=== PATIENT | male | born 1990 | race Caucasian/White ===

== ENCOUNTER 2016-11-04 20:46 | Emergency (ER) | payer MEDICAID ==
--- NOTE | 2016-11-04 20:52 | ER Document Report ---
ED Medical Screen (RME) - General Stated Complaint: PSYCH EVAL Notes: Patient has history of a TBI has been aggressive over the last several days as expressed suicidal ideation today with the plan to attempts. TRAVEL OUTSIDE OF THE [place] IN LAST 30 DAYS: No - Related Data Allergies/Adverse Reactions: No Known Allergies Allergy (Verified 08/01/16 15:49)
--- NOTE | 2016-11-04 22:46 | ER Document Report ---
ED General - General Chief Complaint: Psych Problem Stated Complaint: PSYCH EVAL Mode of Arrival: Ambulatory Information source: Patient, Parent Cannot obtain history due to: Other Notes: 26 yr old male with hx of tbi with short term memory on multiple medications presents with family iwth concerns that over the past 3 days he has been aggressive and threatening suicidal ideation. t has never actually harmed himself or others, has had si in the past. pt today stated he wanted ot walk in front of a semi , and find a scissor to harm himself. currently patient denies any symptoms and doesnt remember this episode TRAVEL OUTSIDE OF THE [place] IN LAST 30 DAYS: No - HPI Onset: Other - 3 days Onset/Duration: Intermittent Quality of pain: No pain Severity: Mild Pain Level: Denies Associated symptoms: None Exacerbated by: Denies Relieved by: Denies Similar symptoms previously: Yes Recently seen / treated by doctor: Yes - pt seen originally at [facility]. now being seen in [facility] [address] - Related Data Allergies/Adverse Reactions: No Known Allergies Allergy (Verified 08/01/16 15:49) Past Medical History - Social History Smoking Status: Current Every Day Smoker Cigarette use (# per day): No Chew tobacco use (# tins/day): No Smoking Education Provided: No Drug Abuse: Marijuana Family History: None Patient has suicidal ideation: Yes - currently denies Patient has homicidal ideation: No Renal/ Medical History: Denies: Hx Peritoneal Dialysis Review of Systems - Review of Systems Notes: REVIEW OF SYSTEMS: CONSTITUTIONAL : Denies fever, chills, or sweats. Denies recent illness. EENT: Denies eye, ear, throat, or mouth pain or symptoms. Denies nasal or sinus congestion or discharge. Denies throat, tongue, or mouth swelling or difficulty swallowing. CARDIOVASCULAR: Denies chest pain. Denies palpitations or racing or irregular heart beat. Denies ankle edema. RESPIRATORY: Denies cough, cold, or chest congestion. Denies shortness of breath, difficulty breathing, or wheezing. GASTROINTESTINAL: Denies abdominal pain or distention. Denies nausea, vomiting , or diarrhea. Denies blood in vomitus, stools, or per rectum. Denies black, tarry stools. Denies constipation. GENITOURINARY: Denies difficulty urinating, painful urination, burning, frequency, blood in urine, or discharge. MUSCULOSKELETAL: Denies back or neck pain or stiffness. Denies joint pain or swelling. SKIN: Denies rash, lesions or sores. HEMATOLOGIC : Denies easy bruising or bleeding. LYMPHATIC: Denies swollen, enlarged glands. NEUROLOGICAL: Denies confusion or altered mental status. Denies passing out or loss of consciousness. Denies dizziness or lightheadedness. Denies headache. Denies weakness or paralysis or loss of use of either side. Denies problems with gait or speech. Denies sensory loss, numbness, or tingling. Denies seizures. PSYCHIATRIC: Admits to suicidal ideations per family patient himself denies ALL OTHER SYSTEMS REVIEWED AND NEGATIVE. Dictation was performed using [employer] voice recognition software PHYSICAL EXAMINATION: GENERAL: Well-appearing, well-nourished and in no acute distress . HEAD: Atraumatic, normocephalic. EYES: Pupils equal round and reactive to light, extraocular movements intact, sclera anicteric, conjunctiva are normal. ENT: Nares patent, oropharynx clear without exudates. Moist mucous membranes. NECK: Normal range of motion, supple without lymphadenopathy LUNGS: Breath sounds clear to auscultation bilaterally and equal. No wheezes rales or rhonchi. HEART: Regular rate and rhythm without murmurs ABDOMEN: Soft, nontender, nondistended abdomen. No guarding, no rebound. No masses appreciated. Musculoskeletal: Normal range of motion, no pitting or edema. No cyanosis. NEUROLOGICAL: Cranial nerves grossly intact. Normal speech, normal gait. Normal sensory, motor exams PSYCH: patient is calm and resting, just took his home meds prior ot arrival SKIN: Warm, Dry, normal turgor, no rashes or lesions noted. Physical Exam - Vital signs Vitals: Temp Pulse Resp BP Pulse Ox 98.0 F 77 18 110/64 98 11/04/16 20:54 11/04/16 20:54 11/04/16 20:54 11/04/16 20:54 11/04/16 20:54 Course - Re-evaluation Re-evalutation: 11/04/16 22:45 at this time patient is medical cleared, he is in no distress and does not wish to harm himself or others this may be secondary to his tbi that he is acting this way will hold overnight ot be evaluated by mental health - Vital Signs Vital signs: Temp Pulse Resp BP Pulse Ox 98.0 F 77 18 110/64 98 11/04/16 20:54 11/04/16 20:54 11/04/16 20:54 11/04/16 20:54 11/04/16 20:54 Discharge - Discharge Clinical Impression: Poor short-term memory, Aggressive behavior of adult, Suicidal ideation Traumatic brain injury Qualifiers: Encounter type: sequela Loss of consciousness presence/duration: without LOC Qualified Code(s): S06.9X0S - Unspecified intracranial injury without loss of consciousness, sequela Condition: Stable Disposition: PSYCH HOSP/UNIT Additional Instructions: Please follow-up with care plan provided to you for mental health return immediately if there are any other concerns
[2016-11-05] LABS: URINE BARBITURATES SCREEN NEGATIVE; URINE METHADONE SCREEN NEGATIVE; URINE PHENCYCLIDINE SCREEN NEGATIVE
[2016-11-05 00:05] LABS: ABSOLUTE EOSINOPHILS # (AUTO) 0.1 10^3/uL (0.0-0.6); ABSOLUTE LYMPHOCYTES (AUTO) 2.2 10^3/uL (0.5-4.7); ABSOLUTE MONOCYTES (AUTO) 0.9 10^3/uL (0.1-1.4); ABSOLUTE NEUT (AUTO) 5.6 10^3/uL (1.7-8.2); BASOPHILS % (AUTO) 0.4 % (0-2); EOSINOPHILS % (AUTO) 1.6 % (0-6); HEMATOCRIT 35.4 % (37.9-51.0); HEMOGLOBIN 11.7 g/dL (13.5-17.0); HGB HCT DIFFERENCE -0.3; LYMPHOCYTES % (AUTO) 24.9 % (13-45); MEAN CORPUSCULAR HEMOGLOBIN 29.7 pg (27.0-33.4); MEAN CORPUSCULAR VOLUME 90 fl (80-97); MONOCYTES % (AUTO) 10.4 % (3-13); RED BLOOD COUNT 3.93 10^6/uL (4.35-5.55); RED CELL DISTRIBUTION WIDTH 13.5 % (11.5-14.0); SEGMENTED NEUTROPHILS % (AUTO) 62.7 % (42-78)
[2016-11-05 00:22] LABS: ALANINE AMINOTRANSFERASE 15 U/L (21-72); ALBUMIN 3.5 g/dL (3.5-5.0); ALCOHOL < 10 mg/dL (NONE DETECTED); ALKALINE PHOSPHATASE 111 U/L (38-126); ANION GAP 9 (5-19); ASPARTATE AMINO TRANSFERASE 13 U/L (17-59); BILIRUBIN,TOTAL 0.3 mg/dL (0.2-1.3); BLOOD UREA NITROGEN 6 mg/dL (7-20); CALCIUM 8.7 mg/dL (8.4-10.2); CARBON DIOXIDE 28 mmol/L (22-30); CHLORIDE 108 mmol/L (98-107); GLUCOSE 77 mg/dL (75-110); POTASSIUM 3.4 mmol/L (3.6-5.0); SODIUM 144.5 mmol/L (137-145); TOTAL PROTEIN 5.4 g/dL (6.3-8.2)
[2016-11-05 01:07] LABS: APPEARANCE,URINE CLEAR; BILIRUBIN,URINE NEGATIVE (NEGATIVE); GLUCOSE, URINE NEGATIVE (NEGATIVE); KETONES,URINE NEGATIVE (NEGATIVE); LEUKOCYTE ESTERASE,URINE NEGATIVE (NEGATIVE); NITRITE,URINE NEGATIVE (NEGATIVE); PROTEIN,URINE NEGATIVE (NEGATIVE); URINE SPECIFIC GRAVITY 1.005; UROBILINOGEN,URINE NEGATIVE mg/dL (<2.0)
--- NOTE | 2016-11-05 09:24 | EKG REPORT ---
SEVERITY:- NORMAL ECG - SINUS RHYTHM : Confirmed by: Maite Sahni MD 05-Nov-2016 09:23:17
--- NOTE | 2016-11-05 09:41 | ER Document Report ---
Doctor's Note Notes: 11/05/16 09:41 I have evaluated this pt. this am and he has no c/o at this time. He feels all of his needs are being met and his physical exam is normal. He is awaiting disposition per mental health.
[2016-11-05] MEDS ORDERED: OXCARBAZEPINE 150 MG TABLET PO SCH (10:00)
[2016-11-05] MEDS ORDERED: CLONAZEPAM 1 MG TABLET PO SCH (10:00)
[2016-11-05] MEDS ORDERED: OLANZAPINE 5 MG TABLET PO SCH (10:00)
[2016-11-05] MEDS ORDERED: DOXAZOSIN MESYLATE 1 MG TABLET PO SCH (10:00)
[2016-11-05] MEDS ORDERED: VENLAFAXINE HCL 37.5 MG CAP.SR.24H PO SCH (10:00)
[2016-11-05] MEDS ORDERED: GABAPENTIN 300 MG CAPSULE PO SCH (10:00)
[2016-11-05] MEDS ORDERED: (PENDING PHARMACY ID) (Venlafaxine Hcl [Effexor] 37.5 MG) PO SCH (10:00)
[2016-11-05] MEDS ORDERED: (PENDING PHARMACY ID) (Prazosin Hcl [Prazosin Hcl] 1 MG) PO SCH (10:00)
[2016-11-05] MEDS ORDERED: LISDEXAMFETAMINE DIMESYLATE 40 MG PO SCH (10:00)
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
[2016-11-05 12:04] VITALS: BP 105/68
== END 2016-11-05 12:02 | disposition home or self-care (01) ==
LOC: ER 20:46
DX: R41.3 Other amnesia (principal); R45.851 Suicidal ideations; R46.89 Other symptoms and signs involving appearance and behavior; S06.9X0S Unspecified intracranial injury without loss of consciousness, sequela; X58.XXXS Exposure to other specified factors, sequela; F17.200 Nicotine dependence, unspecified, uncomplicated; Z79.899 Other long term (current) drug therapy
CPT/HCPCS: 93005; 99285; 36415; 80307 ×4; 85025; 80053; 81001; 93010; J3490 ×4

== ENCOUNTER 2016-11-08 13:26 | Emergency (ER) | payer MEDICAID ==
[2016-11-08 14:37] LABS: ABSOLUTE EOSINOPHILS # (AUTO) 0.1 10^3/uL (0.0-0.6); ABSOLUTE LYMPHOCYTES (AUTO) 1.6 10^3/uL (0.5-4.7); ABSOLUTE MONOCYTES (AUTO) 0.8 10^3/uL (0.1-1.4); ABSOLUTE NEUT (AUTO) 6.1 10^3/uL (1.7-8.2); BASOPHILS % (AUTO) 0.3 % (0-2); EOSINOPHILS % (AUTO) 0.8 % (0-6); HEMATOCRIT 39.4 % (37.9-51.0); HEMOGLOBIN 12.8 g/dL (13.5-17.0); MEAN CORPUSCULAR HEMOGLOBIN 29.8 pg (27.0-33.4); MEAN CORPUSCULAR HGB CONC 32.6 g/dL (32.0-36.0); MEAN CORPUSCULAR VOLUME 91 fl (80-97); MONOCYTES % (AUTO) 9.1 % (3-13); RED BLOOD COUNT 4.31 10^6/uL (4.35-5.55); RED CELL DISTRIBUTION WIDTH 13.6 % (11.5-14.0); SEGMENTED NEUTROPHILS % (AUTO) 70.8 % (42-78); WHITE BLOOD COUNT 8.6 10^3/uL (4.0-10.5)
[2016-11-08 14:54] LABS: APPEARANCE,URINE SLIGHTLY-CLOUDY; BILIRUBIN,URINE NEGATIVE (NEGATIVE); CALCIUM OXALATE CRYSTALS,URINE RARE /HPF; GLUCOSE, URINE NEGATIVE (NEGATIVE); KETONES,URINE NEGATIVE (NEGATIVE); LEUKOCYTE ESTERASE,URINE TRACE (NEGATIVE); NITRITE,URINE NEGATIVE (NEGATIVE); PROTEIN,URINE NEGATIVE (NEGATIVE); URINE SPECIFIC GRAVITY 1.015
[2016-11-08 14:59] LABS: URINE BARBITURATES SCREEN NEGATIVE; URINE METHADONE SCREEN NEGATIVE; URINE PHENCYCLIDINE SCREEN NEGATIVE
[2016-11-08 15:06] LABS: ALANINE AMINOTRANSFERASE 15 U/L (21-72); ALBUMIN 3.7 g/dL (3.5-5.0); ALKALINE PHOSPHATASE 131 U/L (38-126); ANION GAP 9 (5-19); ASPARTATE AMINO TRANSFERASE 21 U/L (17-59); BILIRUBIN,TOTAL 0.3 mg/dL (0.2-1.3); BLOOD UREA NITROGEN 6 mg/dL (7-20); CARBON DIOXIDE 32 mmol/L (22-30); CHLORIDE 102 mmol/L (98-107); CREATININE RESULT 0.68 mg/dL (0.52-1.25); GLUCOSE 91 mg/dL (75-110); POTASSIUM 3.3 mmol/L (3.6-5.0); TOTAL PROTEIN 6.1 g/dL (6.3-8.2)
[2016-11-08 15:07] LABS: ALCOHOL < 10 mg/dL (NONE DETECTED)
--- NOTE | 2016-11-08 15:18 | ER Document Report ---
ED General - General Chief Complaint: Suicidal Ideation Stated Complaint: WEAKNESS Mode of Arrival: Ambulatory Information source: Patient, [facility] Records Notes: 18-year-old male history of suicidal ideations who was just seen here a few days prior presents with continued suicidal ideation. Patient notes he wants sternal himself or jumping from a car. Patient denies any actual attempt to do so. Denies any other deficits or concerns TRAVEL OUTSIDE OF THE [place] IN LAST 30 DAYS: No - HPI Onset: Other Onset/Duration: Persistent Quality of pain: No pain Severity: Mild Pain Level: Denies Associated symptoms: Other Exacerbated by: Denies Relieved by: Denies Similar symptoms previously: Yes Recently seen / treated by doctor: Yes - Related Data Allergies/Adverse Reactions: No Known Allergies Allergy (Verified 11/08/16 13:45) Past Medical History - Social History Smoking Status: Current Every Day Smoker Cigarette use (# per day): No Chew tobacco use (# tins/day): No Smoking Education Provided: No Family History: None Patient has suicidal ideation: Yes Patient has homicidal ideation: No Renal/ Medical History: Denies: Hx Peritoneal Dialysis - Immunizations Hx Diphtheria, Pertussis, Tetanus Vaccination: No Review of Systems - Review of Systems Notes: REVIEW OF SYSTEMS: CONSTITUTIONAL : Denies fever, chills, or sweats. Denies recent illness. EENT: Denies eye, ear, throat, or mouth pain or symptoms. Denies nasal or sinus congestion or discharge. Denies throat, tongue, or mouth swelling or difficulty swallowing. CARDIOVASCULAR: Denies chest pain. Denies palpitations or racing or irregular heart beat. Denies ankle edema. RESPIRATORY: Denies cough, cold, or chest congestion. Denies shortness of breath, difficulty breathing, or wheezing. GASTROINTESTINAL: Denies abdominal pain or distention. Denies nausea, vomiting , or diarrhea. Denies blood in vomitus, stools, or per rectum. Denies black, tarry stools. Denies constipation. GENITOURINARY: Denies difficulty urinating, painful urination, burning, frequency, blood in urine, or discharge. MUSCULOSKELETAL: Denies back or neck pain or stiffness. Denies joint pain or swelling. SKIN: Denies rash, lesions or sores. HEMATOLOGIC : Denies easy bruising or bleeding. LYMPHATIC: Denies swollen, enlarged glands. NEUROLOGICAL: Denies confusion or altered mental status. Denies passing out or loss of consciousness. Denies dizziness or lightheadedness. Denies headache. Denies weakness or paralysis or loss of use of either side. Denies problems with gait or speech. Denies sensory loss, numbness, or tingling. Denies seizures. PSYCHIATRIC: Admits to stress suicidal ideation ALL OTHER SYSTEMS REVIEWED AND NEGATIVE. Dictation was performed using [employer] voice recognition software PHYSICAL EXAMINATION: GENERAL: Well-appearing, well-nourished and in no acute distress. HEAD: Atraumatic, normocephalic. EYES: Pupils equal round and reactive to light, extraocular movements intact, sclera anicteric, conjunctiva are normal. ENT: Nares patent, oropharynx clear without exudates. Moist mucous membranes. NECK: Normal range of motion, supple without lymphadenopathy LUNGS: Breath sounds clear to auscultation bilaterally and equal. No wheezes rales or rhonchi. HEART: Regular rate and rhythm without murmurs ABDOMEN: Soft, nontender, nondistended abdomen. No guarding, no rebound. No masses appreciated. Musculoskeletal: Normal range of motion, no pitting or edema. No cyanosis. NEUROLOGICAL: Cranial nerves grossly intact. Normal speech, normal gait. Normal sensory, motor exams PSYCH: Normal mood, normal affect. SKIN: Warm, Dry, normal turgor, no rashes or lesions noted. Physical Exam - Vital signs Vitals: Temp Pulse Resp BP Pulse Ox 97.8 F 93 16 103/69 98 11/08/16 13:38 11/08/16 13:38 11/08/16 13:38 11/08/16 13:38 11/08/16 13:38 Course - Re-evaluation Re-evalutation: 11/08/16 15:16 Laboratory does note mild hypokalemia otherwise patient appears to be no significant distress. He does have marijuana on board. pt will require mental health eval and further plan - Vital Signs Vital signs: Temp Pulse Resp BP Pulse Ox 97.8 F 93 16 103/69 98 11/08/16 13:38 11/08/16 13:38 11/08/16 13:38 11/08/16 13:38 11/08/16 13:38 - Laboratory Result Diagrams: 11/08/16 14:17 11/08/16 14:17 Laboratory results interpreted by me: 11/08/16 11/08/16 11/08/16 14:17 14:17 14:17 RBC 4.31 L Hgb 12.8 L Potassium 3.3 L Carbon Dioxide 32 H BUN 6 L ALT 15 L Alkaline Phosphatase 131 H Total Protein 6.1 L Urine Urobilinogen 4.0 H Ur Leukocyte Esterase TRACE H Salicylates < 1.0 L Acetaminophen < 10 L - EKG Interpretation by Me EKG shows normal: Sinus rhythm, [place], Intervals, QRS Complexes Discharge - Discharge Clinical Impression: Aggressive behavior, adult, Suicidal ideation TBI (traumatic brain injury) Qualifiers: Encounter type: subsequent encounter Loss of consciousness presence/duration: without LOC Qualified Code(s): S06.9X0D - Unspecified intracranial injury without loss of consciousness, subsequent encounter Condition: Stable Disposition: PSYCH HOSP/UNIT
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
--- NOTE | 2016-11-08 16:24 | EKG REPORT ---
SEVERITY:- NORMAL ECG - SINUS RHYTHM : Confirmed by: Shaun Alicia MD 08-Nov-2016 16:24:31
[2016-11-08] MEDS ORDERED: VENLAFAXINE HCL 25 MG TABLET PO ONE (19:15)
[2016-11-08] MEDS ORDERED: OLANZAPINE 5 MG TABLET PO ONE (19:15)
[2016-11-08] MEDS: OXCARBAZEPINE 150 MG TABLET PO SCH (22:35)
[2016-11-08] MEDS: GABAPENTIN 300 MG CAPSULE PO SCH (22:35)
[2016-11-09] MEDS: GABAPENTIN 300 MG CAPSULE PO SCH (09:06)
[2016-11-09] MEDS: OXCARBAZEPINE 150 MG TABLET PO SCH (09:06)
[2016-11-09] MEDS ORDERED: OLANZAPINE 5 MG TABLET PO SCH (10:00)
[2016-11-09] MEDS ORDERED: VENLAFAXINE HCL 25 MG TABLET PO SCH (10:00)
[2016-11-09] MEDS ORDERED: POTASSIUM CHLORIDE 10 MEQ TABLET.SA PO ONE (10:08)
--- NOTE | 2016-11-09 11:06 | ER Document Report ---
Doctor's Note Notes: 11/09/16 11:05 Rounds: Chart reviewed and patient interviewed. Patient appears calm and well. Says he doesn't feel suicidal today. Says he has family problems causing his explosive behavior. Vital signs are all normal. Labs were normal except for being positive marijuana and having a potassium of 3.2. He was given 40 mEq of KCl by mouth. Patient appears medically stable for transfer or discharge. Zaira Greer M.D.
[2016-11-09 14:33] VITALS: BP 112/61
== END 2016-11-09 14:33 | disposition home or self-care (01) ==
LOC: ER 13:26
DX: R45.851 Suicidal ideations (principal); F91.9 Conduct disorder, unspecified; S06.9X0S Unspecified intracranial injury without loss of consciousness, sequela; X58.XXXS Exposure to other specified factors, sequela; E87.6 Hypokalemia; F17.200 Nicotine dependence, unspecified, uncomplicated
CPT/HCPCS: 93005; 99285; 36415; 80307 ×4; 85025; 80053; 81001; 93010; J3490 ×4

== ENCOUNTER 2017-04-18 15:48 | Inpatient (IN) | payer MEDICAID ==
[2017-04-18] MEDS ORDERED: NORMAL SALINE 1000 ML 1,000 ML IV ONE (15:57)
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
[2017-04-18 16:17] LABS: ABSOLUTE EOSINOPHILS # (AUTO) 0.1 10^3/uL (0.0-0.6); ABSOLUTE LYMPHOCYTES (AUTO) 0.6 10^3/uL (0.5-4.7); ABSOLUTE MONOCYTES (AUTO) 0.5 10^3/uL (0.1-1.4); ABSOLUTE NEUT (AUTO) 6.9 10^3/uL (1.7-8.2); BASOPHILS % (AUTO) 0.4 % (0-2); HEMOGLOBIN 10.9 g/dL (13.5-17.0); HGB HCT DIFFERENCE -0.3; LYMPHOCYTES % (AUTO) 7.7 % (13-45); MEAN CORPUSCULAR HEMOGLOBIN 29.9 pg (27.0-33.4); MEAN CORPUSCULAR HGB CONC 33.1 g/dL (32.0-36.0); MEAN CORPUSCULAR VOLUME 91 fl (80-97); MONOCYTES % (AUTO) 6.1 % (3-13); RED BLOOD COUNT 3.64 10^6/uL (4.35-5.55); RED CELL DISTRIBUTION WIDTH 12.3 % (11.5-14.0); SEGMENTED NEUTROPHILS % (AUTO) 84.8 % (42-78); WHITE BLOOD COUNT 8.1 10^3/uL (4.0-10.5)
[2017-04-18 16:25] LABS: ALANINE AMINOTRANSFERASE 20 U/L (21-72); ALKALINE PHOSPHATASE 83 U/L (38-126); ANION GAP 17 (5-19); ASPARTATE AMINO TRANSFERASE 15 U/L (17-59); BILIRUBIN,DIRECT 0.4 mg/dL (0.0-0.4); BILIRUBIN,TOTAL 0.7 mg/dL (0.2-1.3); BLOOD UREA NITROGEN 10 mg/dL (7-20); CARBON DIOXIDE 17 mmol/L (22-30); CHLORIDE 105 mmol/L (98-107); CREATININE RESULT 1.13 mg/dL (0.52-1.25); GLUCOSE 144 mg/dL (75-110); POTASSIUM 3.4 mmol/L (3.6-5.0); SODIUM 138.6 mmol/L (137-145); TOTAL PROTEIN 6.3 g/dL (6.3-8.2)
[2017-04-18 16:32] LABS: VENOUS BLOOD BASE EXCESS -2.3 mmol/L; VENOUS BLOOD HCO3 22.2 mmol/L (20-32); VENOUS BLOOD PCO2 37.5 mmHg (35-63); VENOUS BLOOD PH 7.39 (7.30-7.42)
[2017-04-18 16:41] LABS: PROTHROMBIN TIME 15.5 SEC (11.4-15.4)
[2017-04-18] MEDS ORDERED: PIPERACILLIN/TAZOBACTAM 3.375 GM VIAL IV ONE (16:41)
[2017-04-18] MEDS ORDERED: VANCOMYCIN HCL INJ 1000 MG VIAL IV ONE (16:41)
[2017-04-18] MEDS ORDERED: ACETAMINOPHEN 325 MG TABLET PO PRN (17:14)
[2017-04-18 17:36] LABS: APPEARANCE,URINE CLEAR; BILIRUBIN,URINE NEGATIVE (NEGATIVE); GLUCOSE, URINE NEGATIVE (NEGATIVE); KETONES,URINE NEGATIVE (NEGATIVE); LEUKOCYTE ESTERASE,URINE NEGATIVE (NEGATIVE); NITRITE,URINE NEGATIVE (NEGATIVE); PROTEIN,URINE NEGATIVE (NEGATIVE); URINE SPECIFIC GRAVITY 1.003; UROBILINOGEN,URINE NEGATIVE mg/dL (<2.0)
[2017-04-18 17:44] LABS: CREATINE KINASE 43 U/L (55-170); MAGNESIUM 1.7 mg/dL (1.6-2.3)
[2017-04-18 17:52] LABS: URINE BARBITURATES SCREEN NEGATIVE; URINE METHADONE SCREEN NEGATIVE; URINE OPIATES LOW NEGATIVE; URINE PHENCYCLIDINE SCREEN NEGATIVE
[2017-04-18] MEDS ORDERED: NORMAL SALINE 1000 ML 3,000 ML IV ONE (17:59)
[2017-04-18] MEDS ORDERED: ENOXAPARIN SODIUM INJ 40 MG/0.4 ML DISP.SYRIN SUBCUT ONE (18:00)
[2017-04-18] MEDS ORDERED: (PENDING PHARMACY ID) (Clonazepam [Klonopin] 0.5 MG) PO PRN (18:01)
[2017-04-18] MEDS ORDERED: CLONAZEPAM 1 MG TABLET PO PRN (18:09)
[2017-04-18] MEDS ORDERED: TRAMADOL HCL 50 MG TABLET PO PRN (18:19)
--- NOTE | 2017-04-18 18:19 | PDOC H&P ---
History of Present Illness Admission Date/PCP: 04/18/17 none History of Present Illness: ANGEL BROOKS is a 26 year old male with a past medical history of a TBI and subsequent bipolar depression who was recently discharged from [facility] for IVC. Patient was walking 2 miles to the cast and with his brother when he collapsed. Patient does suffer some from some short-term memory loss associated with his TBI. He did say to his brother that he was having some back pain and belly pain and yesterday complaining of being cold. The bulk of the history is obtained from his mother who was present at bedside. Patient was found by EMS to have fever of 104 and received a liter of cold saline from EMS. Patient here is found to have a lactic acidosis and probable sepsis referred to the hospitalist service. Past Medical History Past Medical History: tbi Past Surgical History Past Surgical History: Reports: Other - PELLETIZER TENDER shunt x2 Social History Smoking Status: Current Every Day Smoker Cigarettes Packs Per Day: 2 Frequency of Alcohol Use: Rare Hx Recreational Drug Use: Yes Drugs: Marijuana - Advance Directive Resuscitation Status: Full Code Surrogate healthcare decision maker:: Vicki Acosta, Mother Family History Family History: CAD, Malignancy, Other - mental illness Parental Family History Reviewed: Yes Children Family History Reviewed: Yes Sibling(s) Family History Reviewed.: Yes Medication/Allergy Home Medications: Benztropine Mesylate 1 mg PO DAILY 04/18/17 Clonazepam [Klonopin] 0.5 mg PO TID PRN 04/18/17 Guanfacine HCl 2 mg PO QAM 04/18/17 Haloperidol [Haldol 5 mg Tablet] 5 mg PO QHS 04/18/17 Prazosin HCl 1 mg PO QHS 04/18/17 Venlafaxine HCl ER [Effexor Xr 75 mg Cap.sr] 75 mg PO QAM 04/18/17 Allergies/Adverse Reactions: No Known Allergies Allergy (Verified 04/18/17 16:04) Review of Systems Constitutional: PRESENT: chills, fatigue. ABSENT: fever(s), headache(s), weight gain, weight loss Eyes: ABSENT: visual disturbances Ears: ABSENT: hearing changes Nose, Mouth, and Throat: PRESENT: headache(s), mouth pain Cardiovascular: ABSENT: chest pain, dyspnea on exertion, edema, orthropnea, palpitations Respiratory: ABSENT: cough, dyspnea, hemoptysis, sputum Gastrointestinal: ABSENT: abdominal pain, constipation, diarrhea, hematemesis, hematochezia, nausea, vomiting Genitourinary: ABSENT: dysuria, hematuria Musculoskeletal: ABSENT: joint swelling Integumentary: ABSENT: rash, wounds Neurological: PRESENT: memory loss, weakness. ABSENT: abnormal gait, abnormal speech, confusion, dizziness, focal weakness, syncope Psychiatric: PRESENT: depression. ABSENT: anxiety, homidical ideation, suicidal ideation Endocrine: ABSENT: cold intolerance, heat intolerance, polydipsia, polyuria Hematologic/Lymphatic: ABSENT: easy bleeding, easy bruising Physical Exam Vital Signs: Temp Pulse Resp BP Pulse Ox 98.2 F 88 22 H 110/73 100 04/18/17 17:40 04/18/17 16:08 04/18/17 17:31 04/18/17 17:31 04/18/17 17:31 Intake & Output 04/17/17 04/18/17 04/19/17 06:59 06:59 06:59 Weight 58.967 kg General appearance: PRESENT: mild distress, thin, well-developed, well-nourished Head exam: PRESENT: normocephalic. ABSENT: atraumatic - prior vp hr diversity shunt Eye exam: PRESENT: conjunctiva pink, EOMI, PERRLA. ABSENT: scleral icterus Ear exam: PRESENT: normal external ear exam Mouth exam: PRESENT: dry mucosa, tongue midline Teeth exam: PRESENT: dental caries Neck exam: PRESENT: lymphadenopathy - right anterior cervical. ABSENT: JVD, thyromegaly, tracheal deviation Respiratory exam: PRESENT: clear to auscultation mei, prolonged expiratory phas , symmetrical, unlabored. ABSENT: rales, rhonchi, wheezes Cardiovascular exam: PRESENT: RRR, +S1, +S2, tachycardia. ABSENT: diastolic murmur, rubs, systolic murmur Pulses: PRESENT: normal dorsalis pedis pul Vascular exam: PRESENT: normal capillary refill GI/Abdominal exam: PRESENT: normal bowel sounds, soft. ABSENT: distended, firm , guarding, mass, De La Cruz's sign, organolmegaly, rebound, rigid, tenderness Rectal exam: PRESENT: deferred Extremities exam: PRESENT: full ROM. ABSENT: calf tenderness, clubbing, pedal edema Musculoskeletal exam: PRESENT: other - Right CVA tenderness Neurological exam: PRESENT: alert, awake, oriented to person, oriented to place , oriented to time, oriented to situation, CN II-XII grossly intact. ABSENT: motor sensory deficit Psychiatric exam: PRESENT: flat affect, normal mood. ABSENT: homicidal ideation , suicidal ideation Skin exam: PRESENT: dry, intact, warm. ABSENT: cyanosis, rash Results Laboratory Results: 04/18/17 16:00 04/18/17 16:00 04/18/17 04/18/17 04/18/17 16:00 16:00 16:00 WBC 8.1 RBC 3.64 L Hgb 10.9 L Hct 33.0 L MCV 91 MCH 29.9 MCHC 33.1 RDW 12.3 Plt Count 190 Seg Neutrophils % 84.8 H Lymphocytes % 7.7 L Monocytes % 6.1 Eosinophils % 1.0 Basophils % 0.4 Absolute Neutrophils 6.9 Absolute Lymphocytes 0.6 Absolute Monocytes 0.5 Absolute Eosinophils 0.1 Absolute Basophils 0.0 VBG pH VBG pCO2 VBG HCO3 VBG Base Excess Sodium 138.6 Potassium 3.4 L Chloride 105 Carbon Dioxide 17 L Anion Gap 17 BUN 10 Creatinine 1.13 Est GFR ( Amer) > 60 Est GFR (Non-Af Amer) > 60 Glucose 144 H Lactic Acid 6.1 H Calcium 9.0 Phosphorus Magnesium Total Bilirubin 0.7 AST 15 L ALT 20 L Alkaline Phosphatase 83 Total Protein 6.3 Albumin 4.0 Urine Color Urine Appearance Urine pH Ur Specific [place] Urine Protein Urine Glucose (UA) Urine Ketones Urine Blood Urine Nitrite Ur Leukocyte Esterase Urine WBC (Auto) Urine RBC (Auto) 04/18/17 04/18/17 04/18/17 16:00 16:18 17:20 WBC RBC Hgb Hct MCV MCH MCHC RDW Plt Count Seg Neutrophils % Lymphocytes % Monocytes % Eosinophils % Basophils % Absolute Neutrophils Absolute Lymphocytes Absolute Monocytes Absolute Eosinophils Absolute Basophils VBG pH 7.39 VBG pCO2 37.5 VBG HCO3 22.2 VBG Base Excess -2.3 Sodium Potassium Chloride Carbon Dioxide Anion Gap BUN Creatinine Est GFR ( Amer) Est GFR (Non-Af Amer) Glucose Lactic Acid Calcium Phosphorus 3.0 Magnesium 1.7 Total Bilirubin AST ALT Alkaline Phosphatase Total Protein Albumin Urine Color YELLOW Urine Appearance CLEAR Urine pH 6.0 Ur Specific [place] 1.003 Urine Protein NEGATIVE Urine Glucose (UA) NEGATIVE Urine Ketones NEGATIVE Urine Blood NEGATIVE Urine Nitrite NEGATIVE Ur Leukocyte Esterase NEGATIVE Urine WBC (Auto) 1 Urine RBC (Auto) 1 04/18/17 16:00 Creatine Kinase 43 L Assessment & Plan - Diagnosis (1) Severe sepsis Is this a current diagnosis for this admission?: YesPlan: Patient 3 L IV fluid bolus at this time and maintain map greater than 65. Likely secondary to pyelonephritis. Patient's family reports that he had a UTI in [facility], but was not discharged on any antibiotics. (2) Pyelonephritis Is this a current diagnosis for this admission?: YesPlan: Obtain a CT without contrast for stone and to evaluate his right kidney. Place patient on Rocephin IV. Pending urine culture. (3) Short-term memory loss Is this a current diagnosis for this admission?: YesPlan: Sitter and supportive care (4) Tobacco abuse Is this a current diagnosis for this admission?: YesPlan: Nicotine patch (5) Bipolar depression Is this a current diagnosis for this admission?: YesPlan: Current home medications however there is concern for serotonin syndrome as well as neuroleptic malignant syndrome, but patient no longer has a fever. So feel this is unlikely. (6) Hx of traumatic brain injury Is this a current diagnosis for this admission?: Yes - Time Time Spent: 50 to 70 Minutes Medications reviewed and adjusted accordingly: Yes Anticipated discharge: Home Within: within 48 hours, within 72 hours - Inpatient Certification Based on my medical assessment, after consideration of the patient's comorbidities, presenting symptoms, or acuity I expect that the services needed warrant INPATIENT care.: Yes I certify that my determination is in accordance with my understanding of Medicare's requirements for reasonable and necessary INPATIENT services [42 CFR 412.3e].: Yes Medical Necessity: Need For IV Fluids, Need for IV Antibiotics Post Hospital Care: D/C [employer] Documentation
--- NOTE | 2017-04-18 18:46 | RADIOLOGY REPORT (SQ) ---
EXAM DESCRIPTION: CT ABD/PELVIS NO ORAL OR IV COMPLETED DATE/TIME: 04/18/2017 6:23 pm REASON FOR STUDY: concern for pyelo, stone? COMPARISON: None. TECHNIQUE: CT scan of the abdomen and pelvis performed without intravenous or oral contrast. Images reviewed with lung, soft tissue, and bone windows. Reconstructed coronal and sagittal MPR images revi ewed. All images stored on PACS. All CT scanners at this facility use dose modulation, iterative reconstruction, and/or weight based d osing when appropriate to reduce radiation dose to as low as reasonably achievable (ALARA). [facility]: Dose Right [facility]: CareDose [facility]: Dose Right [facility]: Teradose 4D [facility]: [employer] [place] RADIATION DOSE: Up-to-date CT equipment and radiation dose reduction techniques were employed. CTDIv ol: 4.8 mGy. DLP: 255 mGy-cm.mGy. LIMITATIONS: None. FINDINGS: LOWER CHEST: No significant findings. No nodules or infiltrates. NON-CONTRASTED LIVER, SPLEEN, ADRENALS: Evaluation limited by lack of IV contrast. No identified sign ificant masses. PANCREAS: No masses. No peripancreatic inflammatory changes. GALLBLADDER: No identified stones by CT criteria. No inflammatory changes to suggest cholecystitis. RIGHT KIDNEY AND URETER: No suspicious masses. Assessment limited by lack of IV contrast. No signif icant calcifications. No hydronephrosis or hydroureter. LEFT KIDNEY AND URETER: No suspicious masses. Assessment limited by lack of IV contrast. No signifi cant calcifications. No hydronephrosis or hydroureter. AORTA AND RETROPERITONEUM: No aneurysm. No retroperitoneal masses or adenopathy. BOWEL AND PERITONEAL CAVITY: There is a collection of air in the region of the lesser sac the coronal images appears that this is in bowel, but that is not certain. APPENDIX: Normal. PELVIS, BLADDER, AND ABDOMINAL WALL:No abnormal masses. No free fluid. Bladder normal. BONES: No significant findings. OTHER: No other significant finding. IMPRESSION: 1. No urinary pathology is seen. 2. There may be some free air in the abdomen. Is there clinical suspicion of perforation of a gastr ic or duodenal ulcer? TECHNICAL DOCUMENTATION: JOB ID: [id number] Quality ID # [id number]: Final reports with documentation of one or more dose reduction techniques (e.g., Au tomated exposure control, adjustment of the mA and/or kV according to patient size, use of iterative reconstruction technique) 2010 [employer]- All Rights Reserved
[2017-04-18] MEDS ORDERED: NICOTINE 21 MG/24 HR PATCH.TD24 TD ONE (19:00)
[2017-04-18] MEDS: CEFTRIAXONE 1 GM/D5W RTU 1 GM/50 ML RTUPB IV SCH (21:18)
[2017-04-18] MEDS ORDERED: (PENDING PHARMACY ID) (Prazosin Hcl [Prazosin Hcl] 1 MG) PO SCH (22:00)
[2017-04-18] MEDS: HALOPERIDOL 5 MG TABLET PO SCH (23:07)
[2017-04-18 23:18] LABS: ABSOLUTE EOSINOPHILS # (AUTO) 0.1 10^3/uL (0.0-0.6); ABSOLUTE LYMPHOCYTES (AUTO) 1.6 10^3/uL (0.5-4.7); ABSOLUTE MONOCYTES (AUTO) 0.9 10^3/uL (0.1-1.4); ABSOLUTE NEUT (AUTO) 10.2 10^3/uL (1.7-8.2); BASOPHILS % (AUTO) 0.2 % (0-2); EOSINOPHILS % (AUTO) 0.5 % (0-6); HEMATOCRIT 33.9 % (37.9-51.0); HEMOGLOBIN 11.3 g/dL (13.5-17.0); LYMPHOCYTES % (AUTO) 12.5 % (13-45); MEAN CORPUSCULAR HEMOGLOBIN 29.7 pg (27.0-33.4); MEAN CORPUSCULAR HGB CONC 33.5 g/dL (32.0-36.0); MEAN CORPUSCULAR VOLUME 89 fl (80-97); MONOCYTES % (AUTO) 7.3 % (3-13); RED BLOOD COUNT 3.82 10^6/uL (4.35-5.55); RED CELL DISTRIBUTION WIDTH 12.4 % (11.5-14.0); SEGMENTED NEUTROPHILS % (AUTO) 79.5 % (42-78); WHITE BLOOD COUNT 12.9 10^3/uL (4.0-10.5)
--- NOTE | 2017-04-18 23:40 | EKG REPORT ---
SEVERITY:- BORDERLINE ECG - SINUS RHYTHM BORDERLINE T ABNORMALITIES, INFERIOR LEADS : Confirmed by: Mary Cardenas 18-Apr-2017 23:39:06
--- NOTE | 2017-04-18 23:41 | PDOC CONSULTATION ---
Consultation Consult Date: 04/18/17 Attending physician:: JORGE SUMNER Consult reason:: Possible pneumoperitoneum History of Present Illness Admission Date/PCP: 04/18/17 17:14 History of Present Illness: ANGEL BROOKS is a 26 year old male with a past medical history of a TBI and subsequent bipolar depression who was recently discharged from [facility] for IVC. Patient was walking 2 miles to the cast and with his brother when he collapsed. Patient does suffer some from some short-term memory loss associated with his TBI. He did say to his brother that he was having some back pain and belly pain and yesterday complaining of being cold. The bulk of the history is obtained from his mother who was present at bedside. Patient was found by EMS to have fever of 104 and received a liter of cold saline from EMS. Patient here is found to have a lactic acidosis and probable sepsis referred to the hospitalist service. Was contacted by the hospitalist concerns over a CT scan of the abdomen and pelvis that was performed on the patient's admission. By the radiologist at 6: 23 PM this evening the possibility of free air within the patient's abdomen concern for a gastric or duodenal ulcer with perforation. Patient denies any abdominal pain, denies any nausea or vomiting. Did have the elevated temperature on admission but he cannot elicit a history of how long he had per. He that he ate today but cannot remember what he ate. Stated he had a bowel movement today. Past Medical History Medical History: Other - Cannot be obtained from the patient because of previous traumatic brain injury Past Surgical History Past Surgical History: Reports: Other - DIAMOND CLEAVER shunt x2 Social History Smoking Status: Never Smoker Cigarettes Packs Per Day: 2 Frequency of Alcohol Use: None Hx Recreational Drug Use: No Drugs: None Hx Prescription Drug Abuse: No - Advance Directive Resuscitation Status: Full Code Family History Family History: CAD, Malignancy, Other - mental illness Parental Family History Reviewed: Yes Children Family History Reviewed: No Sibling(s) Family History Reviewed.: No Medication/Allergy Home Medications: Benztropine Mesylate 1 mg PO DAILY 04/18/17 Clonazepam [Klonopin] 0.5 mg PO TID PRN 04/18/17 Guanfacine HCl 2 mg PO QAM 04/18/17 Haloperidol [Haldol 5 mg Tablet] 5 mg PO QHS 04/18/17 Prazosin HCl 1 mg PO QHS 04/18/17 Venlafaxine HCl ER [Effexor Xr 75 mg Cap.sr] 75 mg PO QAM 04/18/17 Allergies/Adverse Reactions: No Known Allergies Allergy (Verified 04/18/17 16:04) Review of Systems ROS unobtainable: Due to mental status Physical Exam Vital Signs: Temp Pulse Resp BP Pulse Ox 97.7 F 70 19 94/50 L 100 04/18/17 18:40 04/18/17 18:40 04/18/17 18:40 04/18/17 18:40 04/18/17 18:40 Intake & Output 04/17/17 04/18/17 04/19/17 06:59 06:59 06:59 Weight 50.3 kg General appearance: PRESENT: no acute distress, cooperative, thin Head exam: PRESENT: atraumatic, normocephalic Eye exam: PRESENT: conjunctiva pink, EOMI, PERRLA. ABSENT: scleral icterus Ear exam: PRESENT: normal external ear exam Mouth exam: PRESENT: moist, tongue midline Teeth exam: PRESENT: dental caries, poor dentation Neck exam: ABSENT: carotid bruit, JVD, lymphadenopathy, thyromegaly Respiratory exam: PRESENT: clear to auscultation mei. ABSENT: rales, rhonchi, wheezes Cardiovascular exam: PRESENT: RRR. ABSENT: diastolic murmur, rubs, systolic murmur Pulses: PRESENT: normal dorsalis pedis pul Vascular exam: PRESENT: normal capillary refill GI/Abdominal exam: PRESENT: diminished bowel sounds, normal bowel sounds, soft. ABSENT: distended, guarding, mass, organolmegaly, rebound, tenderness Rectal exam: PRESENT: deferred Extremities exam: PRESENT: full ROM. ABSENT: calf tenderness, clubbing, pedal edema Neurological exam: PRESENT: altered, CN II-XII grossly intact Psychiatric exam: PRESENT: flat affect, unusual affect Skin exam: PRESENT: dry, intact, warm. ABSENT: cyanosis, rash Results Laboratory Results: 04/18/17 23:11 04/18/17 04/18/17 04/18/17 17:20 20:43 23:11 WBC 12.9 H RBC 3.82 L Hgb 11.3 L Hct 33.9 L MCV 89 MCH 29.7 MCHC 33.5 RDW 12.4 Plt Count 202 Seg Neutrophils % 79.5 H Lymphocytes % 12.5 L Monocytes % 7.3 Eosinophils % 0.5 Basophils % 0.2 Absolute Neutrophils 10.2 H Absolute Lymphocytes 1.6 Absolute Monocytes 0.9 Absolute Eosinophils 0.1 Absolute Basophils 0.0 Lactic Acid 1.4 Urine Color YELLOW Urine Appearance CLEAR Urine pH 6.0 Ur Specific [place] 1.003 Urine Protein NEGATIVE Urine Glucose (UA) NEGATIVE Urine Ketones NEGATIVE Urine Blood NEGATIVE Urine Nitrite NEGATIVE Ur Leukocyte Esterase NEGATIVE Urine WBC (Auto) 1 Urine RBC (Auto) 1 Impressions: Abdomen/Pelvis CT 04/18/17 00:00 IMPRESSION: 1. No urinary pathology is seen. 2. There may be some free air in the abdomen. Is there clinical suspicion of perforation of a gastric or duodenal ulcer? Status: Image reviewed by me Assessment & Plan - Diagnosis (1) Pneumoperitoneum of unknown etiology Plan: 1. Patient has a normal white blood cell count and no evidence of an acute abdomen and the patient had a CT scan that was performed without oral or IV contrast will have the CT scan repeated at this time with oral and IV contrast and attempt to identify if there is truly an area of free air within the retroperitoneum 2. Is currently on Zosyn 3.375 mg every 6 hours for a suspected pyelonephritis. Will not alter IV antibiotics at this time. 3. If patient is unable to drink the CT contrast would place an NG tube down the patient and instilled the contrast by that method. 4. Ordered serum amylase and lipase as well as hepatic profile. - Time Time Spent: 50 to 70 Minutes
[2017-04-18 23:50] LABS: ANION GAP 10 (5-19); BLOOD UREA NITROGEN 8 mg/dL (7-20); CALCIUM 8.3 mg/dL (8.4-10.2); CARBON DIOXIDE 22 mmol/L (22-30); CHLORIDE 109 mmol/L (98-107); CREATININE RESULT 0.78 mg/dL (0.52-1.25); GLUCOSE 98 mg/dL (75-110); POTASSIUM 3.8 mmol/L (3.6-5.0); SODIUM 140.8 mmol/L (137-145)
[2017-04-18 23:51] LABS: ALANINE AMINOTRANSFERASE 27 U/L (21-72); ALBUMIN 3.2 g/dL (3.5-5.0); ALKALINE PHOSPHATASE 74 U/L (38-126); AMYLASE 63 U/L (30-110); ASPARTATE AMINO TRANSFERASE 17 U/L (17-59); BILIRUBIN,DIRECT 0.3 mg/dL (0.0-0.4); BILIRUBIN,TOTAL 0.4 mg/dL (0.2-1.3); LIPASE 61.7 U/L (23-300); TOTAL PROTEIN 5.5 g/dL (6.3-8.2)
[2017-04-19] MEDS ORDERED: GLUCAGON,HUMAN RECOMB 1 MG INJ SUBCUT PRN (02:17)
[2017-04-19] MEDS ORDERED: DEXTROSE 40% GEL 15 GM TUBE PO PRN ×2 (02:17)
[2017-04-19] MEDS ORDERED: DEXTROSE 50%-WATER 25 GM/50 ML DISP.SYRIN IV PRN ×2 (02:17)
--- NOTE | 2017-04-19 02:31 | RADIOLOGY REPORT (SQ) ---
EXAM DESCRIPTION: CT ABD/PELVIS WITH IV ORAL COMPLETED DATE/TIME: 04/19/2017 2:09 am REASON FOR STUDY: eval of ? perf or free air COMPARISON: 04/18/2017. TECHNIQUE: CT scan of the abdomen and pelvis performed using helical scanning technique with dynamic intravenous contrast injection. No oral contrast. Images reviewed with lung, soft tissue, and bone windows. Reconstructed coronal and sagittal MPR images reviewed. Delayed images for evaluation of the urinary system also acquired. All images stored on PACS. All CT scanners at this facility use dose modulation, iterative reconstruction, and/or weight based d osing when appropriate to reduce radiation dose to as low as reasonably achievable (ALARA). [facility]: Dose Right [facility]: CareDose [facility]: Dose Right [facility]: Teradose 4D [facility]: WAVE ([employer]) CONTRAST TYPE AND DOSE: contrast/concentration: Isovue 370.00 mg/ml; Total Contrast Delivered: 54.0 ml; Total Saline Delivered: 65.0 ml RENAL FUNCTION: None required. The patient is less than 50 years old. RADIATION DOSE: Up-to-date CT equipment and radiation dose reduction techniques were employed. CTDIv ol: 4.8 mGy. DLP: 491 mGy-cm.. LIMITATIONS: None. FINDINGS: LOWER CHEST: No significant findings. No nodules or infiltrates. LIVER: Normal size. No masses or dilated ducts. SPLEEN: Normal size. No focal lesions. PANCREAS: No masses. No significant calcifications. No adjacent inflammation or peripancreatic fluid collections. Pancreatic duct not dilated. GALLBLADDER: No identified stones by CT criteria. No inflammatory changes to suggest cholecystitis. ADRENAL GLANDS: No significant masses or asymmetry. RIGHT KIDNEY AND URETER: No solid masses. No significant calcifications. No hydronephrosis or hyd roureter. LEFT KIDNEY AND URETER: No solid masses. No significant calcifications. No hydronephrosis or hydr oureter. AORTA AND VESSELS: No aneurysm. No dissection. Renal arteries, SMA, celiac without stenosis. RETROPERITONEUM: No retroperitoneal adenopathy, hemorrhage or masses. BOWEL AND PERITONEAL CAVITY: No masses or inflammatory changes. No free fluid or peritoneal masses. Moderate stool retention of the left colon, sigmoid, and distal transverse colon. APPENDIX: Normal. PELVIS: No mass or free fluid. 12 cm in nonspecific distended urinary bladder. ABDOMINAL WALL: No masses. No hernias. Small likely subcutaneous injection emphysema of the right pa racentral anterior pelvic wall. BONES: No significant or acute findings. OTHER: No other significant finding. IMPRESSION: NO SIGNIFICANT OR ACUTE FINDING IN THE ABDOMEN OR PELVIS ON CT SCAN WITH IV CONTRAST. N o evidence of free air, as queried. TECHNICAL DOCUMENTATION: JOB ID: [id number] Quality ID # [id number]: Final reports with documentation of one or more dose reduction techniques (e.g., Au tomated exposure control, adjustment of the mA and/or kV according to patient size, use of iterative reconstruction technique) 2010 [employer]- All Rights Reserved
--- NOTE | 2017-04-19 03:15 | PDOC PROGRESS REPORT ---
Subjective Progress Note for:: 04/19/17 Subjective:: Patient was seen this a.m. Currently sleeping. Nursing states he has had no complaints following ingestion of the CT contrast and the procedure itself early this a.m. He denies abdominal pain prior to falling asleep per nursing. Physical Exam Vital Signs: Temp Pulse Resp BP Pulse Ox 97.7 F 60 17 93/50 L 100 04/19/17 00:00 04/19/17 02:00 04/19/17 00:00 04/19/17 00:00 04/19/17 00:00 Intake & Output 04/17/17 04/18/17 04/19/17 06:59 06:59 06:59 Weight 50.3 kg GI/Abdominal exam: PRESENT: normal bowel sounds, soft. ABSENT: distended, guarding, mass, organolmegaly, rebound, tenderness Results Laboratory Results: 04/18/17 23:11 04/18/17 23:11 04/18/17 04/18/17 04/18/17 17:20 20:43 23:11 WBC 12.9 H RBC 3.82 L Hgb 11.3 L Hct 33.9 L MCV 89 MCH 29.7 MCHC 33.5 RDW 12.4 Plt Count 202 Seg Neutrophils % 79.5 H Lymphocytes % 12.5 L Monocytes % 7.3 Eosinophils % 0.5 Basophils % 0.2 Absolute Neutrophils 10.2 H Absolute Lymphocytes 1.6 Absolute Monocytes 0.9 Absolute Eosinophils 0.1 Absolute Basophils 0.0 Sodium Potassium Chloride Carbon Dioxide Anion Gap BUN Creatinine Est GFR ( Amer) Est GFR (Non-Af Amer) Glucose Lactic Acid 1.4 Calcium Total Bilirubin AST ALT Alkaline Phosphatase Total Protein Albumin Amylase Lipase Urine Color YELLOW Urine Appearance CLEAR Urine pH 6.0 Ur Specific [place] 1.003 Urine Protein NEGATIVE Urine Glucose (UA) NEGATIVE Urine Ketones NEGATIVE Urine Blood NEGATIVE Urine Nitrite NEGATIVE Ur Leukocyte Esterase NEGATIVE Urine WBC (Auto) 1 Urine RBC (Auto) 1 04/18/17 04/18/17 23:11 23:11 WBC RBC Hgb Hct MCV MCH MCHC RDW Plt Count Seg Neutrophils % Lymphocytes % Monocytes % Eosinophils % Basophils % Absolute Neutrophils Absolute Lymphocytes Absolute Monocytes Absolute Eosinophils Absolute Basophils Sodium 140.8 Potassium 3.8 Chloride 109 H Carbon Dioxide 22 Anion Gap 10 BUN 8 Creatinine 0.78 Est GFR ( Amer) > 60 Est GFR (Non-Af Amer) > 60 Glucose 98 Lactic Acid Calcium 8.3 L Total Bilirubin 0.4 AST 17 ALT 27 Alkaline Phosphatase 74 Total Protein 5.5 L Albumin 3.2 L Amylase 63 Lipase 61.7 Urine Color Urine Appearance Urine pH Ur Specific [place] Urine Protein Urine Glucose (UA) Urine Ketones Urine Blood Urine Nitrite Ur Leukocyte Esterase Urine WBC (Auto) Urine RBC (Auto) Impressions: Abdomen/Pelvis CT 04/19/17 00:00 IMPRESSION: NO SIGNIFICANT OR ACUTE FINDING IN THE ABDOMEN OR PELVIS ON CT SCAN WITH IV CONTRAST. No evidence of free air, as queried. Status: Image reviewed by me - Agree with above findings of CT scan of the abdomen pelvis with oral and IV contrast Assessment & Plan - Diagnosis (1) Severe sepsis Is this a current diagnosis for this admission?: Yes (2) Hx of traumatic brain injury Is this a current diagnosis for this admission?: YesPlan: There is no evidence of pneumoperitoneum, acute abdomen or any evidence of perforated viscus will sign off the case, call if needed - Time Time Spent with patient: 15-24 minutes
[2017-04-19] MEDS ORDERED: LACTULOSE SYRUP 20 GM/30 ML UDCUP PO ONE (04:07)
[2017-04-19] MEDS: NORMAL SALINE 1000 ML 1,000 ML IV PRN (05:41)
[2017-04-19 06:16] LABS: ABSOLUTE EOSINOPHILS # (AUTO) 0.2 10^3/uL (0.0-0.6); ABSOLUTE LYMPHOCYTES (AUTO) 1.9 10^3/uL (0.5-4.7); ABSOLUTE MONOCYTES (AUTO) 0.9 10^3/uL (0.1-1.4); ABSOLUTE NEUT (AUTO) 5.5 10^3/uL (1.7-8.2); BASOPHILS % (AUTO) 0.2 % (0-2); EOSINOPHILS % (AUTO) 2.4 % (0-6); HEMATOCRIT 32.9 % (37.9-51.0); HEMOGLOBIN 10.8 g/dL (13.5-17.0); HGB HCT DIFFERENCE -0.5; LYMPHOCYTES % (AUTO) 22.2 % (13-45); MEAN CORPUSCULAR HEMOGLOBIN 29.7 pg (27.0-33.4); MEAN CORPUSCULAR HGB CONC 32.8 g/dL (32.0-36.0); MEAN CORPUSCULAR VOLUME 91 fl (80-97); MONOCYTES % (AUTO) 10.3 % (3-13); RED BLOOD COUNT 3.63 10^6/uL (4.35-5.55); RED CELL DISTRIBUTION WIDTH 12.5 % (11.5-14.0); SEGMENTED NEUTROPHILS % (AUTO) 64.9 % (42-78); WHITE BLOOD COUNT 8.5 10^3/uL (4.0-10.5)
[2017-04-19 06:49] LABS: ANION GAP 7 (5-19); BLOOD UREA NITROGEN 5 mg/dL (7-20); CARBON DIOXIDE 23 mmol/L (22-30); CHLORIDE 112 mmol/L (98-107); CREATININE RESULT 0.77 mg/dL (0.52-1.25); GLUCOSE 81 mg/dL (75-110); SODIUM 141.6 mmol/L (137-145)
[2017-04-19] MEDS ORDERED: GUANFACINE HCL 2 MG PO SCH (08:00)
[2017-04-19] MEDS ORDERED: BISACODYL 10 MG SUPP.RECT PR ONE (09:52)
--- NOTE | 2017-04-19 09:58 | PDOC PROGRESS REPORT ---
Subjective Progress Note for:: 04/19/17 Subjective:: Patient reports feeling better this morning. No nausea or vomiting. No shortness of breath or coughing or chest congestion. Denies diarrhea. Reportedly without any urine output by bladder scan showing [address] of the abdomen and pelvis repeat with IV contrast did not reveal any free air. It did reveal constipation however. Physical Exam Vital Signs: Temp Pulse Resp BP Pulse Ox 97.5 F 77 14 109/67 100 04/19/17 07:34 04/19/17 07:34 04/19/17 07:34 04/19/17 07:34 04/19/17 07:34 Intake & Output 04/18/17 04/19/17 04/20/17 06:59 06:59 06:59 Intake Total 3230 Balance 3230 Weight 50.3 kg 50.3 kg General appearance: PRESENT: no acute distress, cooperative Head exam: PRESENT: normocephalic Eye exam: PRESENT: EOMI Mouth exam: PRESENT: moist, neck supple Neck exam: ABSENT: JVD Respiratory exam: PRESENT: clear to auscultation mei. ABSENT: rhonchi, wheezes Cardiovascular exam: PRESENT: RRR. ABSENT: gallop GI/Abdominal exam: PRESENT: distended, hypoactive bowel sounds, soft. ABSENT: tenderness Extremities exam: ABSENT: pedal edema Neurological exam: PRESENT: alert, awake, oriented to situation Skin exam: PRESENT: dry, warm. ABSENT: cyanosis Results Laboratory Results: 04/19/17 05:30 04/19/17 05:30 04/18/17 04/18/17 04/18/17 17:20 20:43 23:11 WBC 12.9 H RBC 3.82 L Hgb 11.3 L Hct 33.9 L MCV 89 MCH 29.7 MCHC 33.5 RDW 12.4 Plt Count 202 Seg Neutrophils % 79.5 H Lymphocytes % 12.5 L Monocytes % 7.3 Eosinophils % 0.5 Basophils % 0.2 Absolute Neutrophils 10.2 H Absolute Lymphocytes 1.6 Absolute Monocytes 0.9 Absolute Eosinophils 0.1 Absolute Basophils 0.0 Sodium Potassium Chloride Carbon Dioxide Anion Gap BUN Creatinine Est GFR ( Amer) Est GFR (Non-Af Amer) Glucose Lactic Acid 1.4 Calcium Total Bilirubin AST ALT Alkaline Phosphatase Total Protein Albumin Amylase Lipase Urine Color YELLOW Urine Appearance CLEAR Urine pH 6.0 Ur Specific [place] 1.003 Urine Protein NEGATIVE Urine Glucose (UA) NEGATIVE Urine Ketones NEGATIVE Urine Blood NEGATIVE Urine Nitrite NEGATIVE Ur Leukocyte Esterase NEGATIVE Urine WBC (Auto) 1 Urine RBC (Auto) 1 04/18/17 04/18/17 04/19/17 23:11 23:11 05:30 WBC 8.5 RBC 3.63 L Hgb 10.8 L Hct 32.9 L MCV 91 MCH 29.7 MCHC 32.8 RDW 12.5 Plt Count 198 Seg Neutrophils % 64.9 Lymphocytes % 22.2 Monocytes % 10.3 Eosinophils % 2.4 Basophils % 0.2 Absolute Neutrophils 5.5 Absolute Lymphocytes 1.9 Absolute Monocytes 0.9 Absolute Eosinophils 0.2 Absolute Basophils 0.0 Sodium 140.8 Potassium 3.8 Chloride 109 H Carbon Dioxide 22 Anion Gap 10 BUN 8 Creatinine 0.78 Est GFR ( Amer) > 60 Est GFR (Non-Af Amer) > 60 Glucose 98 Lactic Acid Calcium 8.3 L Total Bilirubin 0.4 AST 17 ALT 27 Alkaline Phosphatase 74 Total Protein 5.5 L Albumin 3.2 L Amylase 63 Lipase 61.7 Urine Color Urine Appearance Urine pH Ur Specific [place] Urine Protein Urine Glucose (UA) Urine Ketones Urine Blood Urine Nitrite Ur Leukocyte Esterase Urine WBC (Auto) Urine RBC (Auto) 04/19/17 05:30 WBC RBC Hgb Hct MCV MCH MCHC RDW Plt Count Seg Neutrophils % Lymphocytes % Monocytes % Eosinophils % Basophils % Absolute Neutrophils Absolute Lymphocytes Absolute Monocytes Absolute Eosinophils Absolute Basophils Sodium 141.6 Potassium 4.0 Chloride 112 H Carbon Dioxide 23 Anion Gap 7 BUN 5 L Creatinine 0.77 Est GFR ( Amer) > 60 Est GFR (Non-Af Amer) > 60 Glucose 81 Lactic Acid Calcium 8.0 L Total Bilirubin AST ALT Alkaline Phosphatase Total Protein Albumin Amylase Lipase Urine Color Urine Appearance Urine pH Ur Specific [place] Urine Protein Urine Glucose (UA) Urine Ketones Urine Blood Urine Nitrite Ur Leukocyte Esterase Urine WBC (Auto) Urine RBC (Auto) Impressions: Abdomen/Pelvis CT 04/19/17 00:00 IMPRESSION: NO SIGNIFICANT OR ACUTE FINDING IN THE ABDOMEN OR PELVIS ON CT SCAN WITH IV CONTRAST. No evidence of free air, as queried. Assessment & Plan - Diagnosis (1) Sepsis Qualifiers: Sepsis type: sepsis due to unspecified organism Qualified Code(s): A41.9 - Sepsis, unspecified organism Is this a current diagnosis for this admission?: Yes (2) Pyelonephritis Is this a current diagnosis for this admission?: Yes (3) Substance abuse Is this a current diagnosis for this admission?: Yes (4) Constipation Qualifiers: Constipation type: unspecified constipation type Qualified Code(s): K59.00 - Constipation, unspecified Is this a current diagnosis for this admission?: Yes (5) Urinary retention Is this a current diagnosis for this admission?: Yes (6) Anemia of chronic disease Is this a current diagnosis for this admission?: Yes (7) Bipolar depression Is this a current diagnosis for this admission?: Yes (8) Hx of traumatic brain injury Is this a current diagnosis for this admission?: Yes - Time Time Spent with patient: 25-34 minutes - Plan Summary Plan Summary: Continue current antibiotics for now. Follow cultures. Give Dulcolax suppository. Insert Mccarty catheter. Continue other medication and supportive care. Discontinue prazosin.
[2017-04-19] MEDS: VENLAFAXINE HCL 75 MG CAP.SR.24H PO SCH (10:18)
[2017-04-19] MEDS: BENZTROPINE MESYLATE 1 MG TABLET PO SCH (10:18)
[2017-04-19] MEDS: NICOTINE 21 MG/24 HR PATCH.TD24 TD SCH (10:19)
[2017-04-19] MEDS: ENOXAPARIN SODIUM INJ 40 MG/0.4 ML DISP.SYRIN SUBCUT SCH (10:21)
--- NOTE | 2017-04-19 12:35 | PDOC PROGRESS REPORT ---
Subjective Progress Note for:: 04/19/17 Subjective:: Patient seen this a.m. Been eating breakfast in his bed. He denies any abdominal pain. Nursing stated the patient was having some abdominal pain, crampy in nature, prior to beginning his a.m. feeding but had a bowel movement and this all resolved. He denies any nausea or vomiting. He is much more alert and awake than he was yesterday. Physical Exam Vital Signs: Temp Pulse Resp BP Pulse Ox 97.5 F 77 14 109/67 100 04/19/17 07:34 04/19/17 07:34 04/19/17 07:34 04/19/17 07:34 04/19/17 07:34 Intake & Output 04/18/17 04/19/17 04/20/17 06:59 06:59 06:59 Intake Total 3230 Balance 3230 Weight 50.3 kg 50.3 kg General appearance: PRESENT: no acute distress, cooperative Head exam: PRESENT: atraumatic, normocephalic Mouth exam: PRESENT: moist Neck exam: ABSENT: carotid bruit, JVD, lymphadenopathy, thyromegaly Respiratory exam: PRESENT: clear to auscultation mei. ABSENT: rales, rhonchi, wheezes Cardiovascular exam: PRESENT: RRR. ABSENT: diastolic murmur, rubs, systolic murmur Pulses: PRESENT: normal dorsalis pedis pul GI/Abdominal exam: PRESENT: normal bowel sounds, soft. ABSENT: distended, guarding, mass, organolmegaly, rebound, tenderness Rectal exam: PRESENT: deferred Extremities exam: PRESENT: full ROM. ABSENT: calf tenderness, clubbing, pedal edema Neurological exam: PRESENT: alert, awake, oriented to person, oriented to place , oriented to time, oriented to situation, CN II-XII grossly intact. ABSENT: motor sensory deficit Psychiatric exam: PRESENT: flat affect Results Laboratory Results: 04/19/17 05:30 04/19/17 05:30 04/18/17 04/18/17 04/18/17 17:20 20:43 23:11 WBC 12.9 H RBC 3.82 L Hgb 11.3 L Hct 33.9 L MCV 89 MCH 29.7 MCHC 33.5 RDW 12.4 Plt Count 202 Seg Neutrophils % 79.5 H Lymphocytes % 12.5 L Monocytes % 7.3 Eosinophils % 0.5 Basophils % 0.2 Absolute Neutrophils 10.2 H Absolute Lymphocytes 1.6 Absolute Monocytes 0.9 Absolute Eosinophils 0.1 Absolute Basophils 0.0 Sodium Potassium Chloride Carbon Dioxide Anion Gap BUN Creatinine Est GFR ( Amer) Est GFR (Non-Af Amer) Glucose Lactic Acid 1.4 Calcium Total Bilirubin AST ALT Alkaline Phosphatase Total Protein Albumin Amylase Lipase Urine Color YELLOW Urine Appearance CLEAR Urine pH 6.0 Ur Specific [place] 1.003 Urine Protein NEGATIVE Urine Glucose (UA) NEGATIVE Urine Ketones NEGATIVE Urine Blood NEGATIVE Urine Nitrite NEGATIVE Ur Leukocyte Esterase NEGATIVE Urine WBC (Auto) 1 Urine RBC (Auto) 1 04/18/17 04/18/17 04/19/17 23:11 23:11 05:30 WBC 8.5 RBC 3.63 L Hgb 10.8 L Hct 32.9 L MCV 91 MCH 29.7 MCHC 32.8 RDW 12.5 Plt Count 198 Seg Neutrophils % 64.9 Lymphocytes % 22.2 Monocytes % 10.3 Eosinophils % 2.4 Basophils % 0.2 Absolute Neutrophils 5.5 Absolute Lymphocytes 1.9 Absolute Monocytes 0.9 Absolute Eosinophils 0.2 Absolute Basophils 0.0 Sodium 140.8 Potassium 3.8 Chloride 109 H Carbon Dioxide 22 Anion Gap 10 BUN 8 Creatinine 0.78 Est GFR ( Amer) > 60 Est GFR (Non-Af Amer) > 60 Glucose 98 Lactic Acid Calcium 8.3 L Total Bilirubin 0.4 AST 17 ALT 27 Alkaline Phosphatase 74 Total Protein 5.5 L Albumin 3.2 L Amylase 63 Lipase 61.7 Urine Color Urine Appearance Urine pH Ur Specific [place] Urine Protein Urine Glucose (UA) Urine Ketones Urine Blood Urine Nitrite Ur Leukocyte Esterase Urine WBC (Auto) Urine RBC (Auto) 04/19/17 05:30 WBC RBC Hgb Hct MCV MCH MCHC RDW Plt Count Seg Neutrophils % Lymphocytes % Monocytes % Eosinophils % Basophils % Absolute Neutrophils Absolute Lymphocytes Absolute Monocytes Absolute Eosinophils Absolute Basophils Sodium 141.6 Potassium 4.0 Chloride 112 H Carbon Dioxide 23 Anion Gap 7 BUN 5 L Creatinine 0.77 Est GFR ( Amer) > 60 Est GFR (Non-Af Amer) > 60 Glucose 81 Lactic Acid Calcium 8.0 L Total Bilirubin AST ALT Alkaline Phosphatase Total Protein Albumin Amylase Lipase Urine Color Urine Appearance Urine pH Ur Specific [place] Urine Protein Urine Glucose (UA) Urine Ketones Urine Blood Urine Nitrite Ur Leukocyte Esterase Urine WBC (Auto) Urine RBC (Auto) Impressions: Abdomen/Pelvis CT 04/19/17 00:00 IMPRESSION: NO SIGNIFICANT OR ACUTE FINDING IN THE ABDOMEN OR PELVIS ON CT SCAN WITH IV CONTRAST. No evidence of free air, as queried. Assessment & Plan - Diagnosis (1) Severe sepsis Is this a current diagnosis for this admission?: Yes (2) Hx of traumatic brain injury Is this a current diagnosis for this admission?: Yes (3) Abdominal pain Qualifiers: Abdominal location: periumbilical Qualified Code(s): R10.33 - Periumbilical pain Plan: The CT scan was reviewed and found to evidence of pneumoperitoneum suggestive of perforated viscus the patient's white blood count is normal as well which would indicate there is no evidence of intra-abdominal pathology at this time. We will sign off the patient's case may call if needed - Time Time Spent with patient: 15-24 minutes
[2017-04-19] MEDS: CEFTRIAXONE 1 GM/D5W RTU 1 GM/50 ML RTUPB IV SCH (21:23)
[2017-04-19] MEDS: HALOPERIDOL 5 MG TABLET PO SCH (21:23)
[2017-04-20 05:13] LABS: ABSOLUTE EOSINOPHILS # (AUTO) 0.1 10^3/uL (0.0-0.6); ABSOLUTE LYMPHOCYTES (AUTO) 1.3 10^3/uL (0.5-4.7); ABSOLUTE MONOCYTES (AUTO) 1.1 10^3/uL (0.1-1.4); ABSOLUTE NEUT (AUTO) 7.1 10^3/uL (1.7-8.2); BASOPHILS % (AUTO) 0.5 % (0-2); EOSINOPHILS % (AUTO) 1.4 % (0-6); HEMOGLOBIN 10.9 g/dL (13.5-17.0); HGB HCT DIFFERENCE 0.7; LYMPHOCYTES % (AUTO) 13.7 % (13-45); MEAN CORPUSCULAR HEMOGLOBIN 30.1 pg (27.0-33.4); MEAN CORPUSCULAR VOLUME 89 fl (80-97); MONOCYTES % (AUTO) 11.6 % (3-13); RED BLOOD COUNT 3.62 10^6/uL (4.35-5.55); RED CELL DISTRIBUTION WIDTH 12.6 % (11.5-14.0); SEGMENTED NEUTROPHILS % (AUTO) 72.8 % (42-78); WHITE BLOOD COUNT 9.8 10^3/uL (4.0-10.5)
[2017-04-20 05:29] LABS: ANION GAP 6 (5-19); CALCIUM 8.2 mg/dL (8.4-10.2); CARBON DIOXIDE 26 mmol/L (22-30); CHLORIDE 108 mmol/L (98-107); GLUCOSE 86 mg/dL (75-110); POTASSIUM 3.5 mmol/L (3.6-5.0); SODIUM 140.3 mmol/L (137-145)
[2017-04-20 05:32] LABS: BLOOD UREA NITROGEN < 2 mg/dL (7-20)
[2017-04-20] MEDS: VENLAFAXINE HCL 75 MG CAP.SR.24H PO SCH (07:56)
[2017-04-20] MEDS: BENZTROPINE MESYLATE 1 MG TABLET PO SCH (09:41)
[2017-04-20] MEDS: ENOXAPARIN SODIUM INJ 40 MG/0.4 ML DISP.SYRIN SUBCUT SCH (09:41)
[2017-04-20] MEDS: NICOTINE 21 MG/24 HR PATCH.TD24 TD SCH (09:42)
[2017-04-20] MEDS ORDERED: VANCOMYCIN HCL INJ 1000 MG VIAL IV SCH (11:45)
--- NOTE | 2017-04-20 11:54 | PDOC PROGRESS REPORT ---
Subjective Progress Note for:: 04/20/17 Subjective:: Patient reports feeling better this morning and overall. However still w/ lightheadedness. No nausea or vomiting. No shortness of breath or coughing or chest congestion. Denies diarrhea. Reportedly without any urine output by bladder scan showing [address] of the abdomen and pelvis repeat with IV contrast did not reveal any free air. It did reveal constipation however. No BM yet reported. Physical Exam Vital Signs: Temp Pulse Resp BP Pulse Ox 98.8 F 68 16 100/50 L 100 04/20/17 08:00 04/20/17 08:00 04/20/17 08:00 04/20/17 08:00 04/20/17 08:00 Intake & Output 04/19/17 04/20/17 04/21/17 06:59 06:59 06:59 Intake Total 3230 4827 Output Total 4400 Balance 3230 427 Weight 50.3 kg 50.6 kg General appearance: PRESENT: no acute distress, cooperative Head exam: PRESENT: normocephalic Eye exam: PRESENT: EOMI Mouth exam: PRESENT: moist, neck supple Neck exam: ABSENT: JVD Respiratory exam: PRESENT: clear to auscultation mei. ABSENT: rhonchi, wheezes Cardiovascular exam: PRESENT: RRR. ABSENT: gallop GI/Abdominal exam: PRESENT: hypoactive bowel sounds, soft. ABSENT: distended, tenderness Extremities exam: ABSENT: pedal edema Neurological exam: PRESENT: alert, awake, oriented to situation Skin exam: PRESENT: dry, warm. ABSENT: cyanosis Results Laboratory Results: 04/20/17 04:33 04/20/17 04:33 04/20/17 04/20/17 04:33 04:33 WBC 9.8 RBC 3.62 L Hgb 10.9 L Hct 32.0 L MCV 89 MCH 30.1 MCHC 34.0 RDW 12.6 Plt Count 177 Seg Neutrophils % 72.8 Lymphocytes % 13.7 Monocytes % 11.6 Eosinophils % 1.4 Basophils % 0.5 Absolute Neutrophils 7.1 Absolute Lymphocytes 1.3 Absolute Monocytes 1.1 Absolute Eosinophils 0.1 Absolute Basophils 0.0 Sodium 140.3 Potassium 3.5 L Chloride 108 H Carbon Dioxide 26 Anion Gap 6 BUN < 2 L Creatinine 0.60 Est GFR ( Amer) > 60 Est GFR (Non-Af Amer) > 60 Glucose 86 Calcium 8.2 L 04/18/17 17:20 Catheterized Urine Urine Culture - Final NO GROWTH 2 DAYS Impressions: Abdomen/Pelvis CT 04/19/17 00:00 IMPRESSION: NO SIGNIFICANT OR ACUTE FINDING IN THE ABDOMEN OR PELVIS ON CT SCAN WITH IV CONTRAST. No evidence of free air, as queried. Assessment & Plan - Diagnosis (1) Sepsis Qualifiers: Sepsis type: sepsis due to unspecified organism Qualified Code(s): A41.9 - Sepsis, unspecified organism Is this a current diagnosis for this admission?: Yes (2) Pyelonephritis Is this a current diagnosis for this admission?: Yes (3) Substance abuse Is this a current diagnosis for this admission?: Yes (4) Constipation Qualifiers: Constipation type: unspecified constipation type Qualified Code(s): K59.00 - Constipation, unspecified Is this a current diagnosis for this admission?: Yes (5) Urinary retention Is this a current diagnosis for this admission?: Yes (6) Anemia of chronic disease Is this a current diagnosis for this admission?: Yes (7) Bipolar depression Is this a current diagnosis for this admission?: Yes (8) Hx of traumatic brain injury Is this a current diagnosis for this admission?: Yes - Time Time Spent with patient: 25-34 minutes - Plan Summary Plan Summary: Begin vancomycin IV and follow cultures. Decrease haldol. Cont. IVF. Dulcolax for constipation.
[2017-04-20] MEDS ORDERED: BISACODYL 10 MG SUPP.RECT PR ONE (12:30)
[2017-04-20] MEDS: POTASSIUM CHLORIDE 10 MEQ TABLET.SA PO SCH ×2 (14:12→17:54)
--- NOTE | 2017-04-20 14:22 | Physician Advisory Note ---
Physician Advisor ProgressNote .: [facility], I have reviewed the medical record for this patient. Physician Advisor Statement: Please consider documentin. "sepsis due to pyelonephritis, present on adm" 2. ? 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 ED gave 1L bolus & immediate IV abx. Admitting attending ordered 3L IVF boluses before NS @150 w/continued IV abx. Thanks! CK
[2017-04-20] MEDS: VANCOMYCIN HCL 750 MG in DEXTROSE 5%-WATER 250 ML IV SCH ×2 (14:39→21:56)
[2017-04-20] MEDS: CEFTRIAXONE 1 GM/D5W RTU 1 GM/50 ML RTUPB IV SCH (21:11)
[2017-04-20] MEDS: HALOPERIDOL 5 MG TABLET PO SCH (21:56)
[2017-04-21] MEDS: VANCOMYCIN HCL 750 MG in DEXTROSE 5%-WATER 250 ML IV SCH ×3 (05:20→21:23)
[2017-04-21 06:05] LABS: ABSOLUTE EOSINOPHILS # (AUTO) 0.2 10^3/uL (0.0-0.6); ABSOLUTE LYMPHOCYTES (AUTO) 1.8 10^3/uL (0.5-4.7); ABSOLUTE MONOCYTES (AUTO) 0.9 10^3/uL (0.1-1.4); ABSOLUTE NEUT (AUTO) 3.9 10^3/uL (1.7-8.2); BASOPHILS % (AUTO) 0.4 % (0-2); HEMOGLOBIN 10.8 g/dL (13.5-17.0); HGB HCT DIFFERENCE 0.4; LYMPHOCYTES % (AUTO) 25.9 % (13-45); MEAN CORPUSCULAR HGB CONC 33.8 g/dL (32.0-36.0); MEAN CORPUSCULAR VOLUME 89 fl (80-97); MONOCYTES % (AUTO) 13.3 % (3-13); RED BLOOD COUNT 3.62 10^6/uL (4.35-5.55); RED CELL DISTRIBUTION WIDTH 12.6 % (11.5-14.0); SEGMENTED NEUTROPHILS % (AUTO) 57.4 % (42-78); WHITE BLOOD COUNT 6.8 10^3/uL (4.0-10.5)
[2017-04-21 06:28] LABS: ANION GAP 8 (5-19); BLOOD UREA NITROGEN 3 mg/dL (7-20); CALCIUM 8.3 mg/dL (8.4-10.2); CARBON DIOXIDE 26 mmol/L (22-30); CHLORIDE 108 mmol/L (98-107); CREATININE RESULT 0.61 mg/dL (0.52-1.25); GLUCOSE 88 mg/dL (75-110); POTASSIUM 4.2 mmol/L (3.6-5.0); SODIUM 141.7 mmol/L (137-145)
[2017-04-21] MEDS: VENLAFAXINE HCL 75 MG CAP.SR.24H PO SCH (08:32)
--- NOTE | 2017-04-21 08:44 | PDOC PROGRESS REPORT ---
Subjective Progress Note for:: 04/21/17 Subjective:: Denies chills or fever. Denies nausea or vomiting or diarrhea. Denies shortness of breath. Staff reports blood pressure drops when patient is upright. Patient denies feeling dizzy at this time. Physical Exam Vital Signs: Temp Pulse Resp BP Pulse Ox 97.9 F 70 15 107/55 L 100 04/21/17 07:15 04/21/17 07:15 04/21/17 07:15 04/21/17 07:15 04/21/17 07:15 Intake & Output 04/20/17 04/21/17 04/22/17 06:59 06:59 06:59 Intake Total 4827 5585 Output Total 4400 5400 Balance 427 185 Weight 50.6 kg 50.9 kg General appearance: PRESENT: no acute distress, cooperative, thin Eye exam: PRESENT: EOMI Mouth exam: PRESENT: moist, neck supple Neck exam: ABSENT: JVD Respiratory exam: PRESENT: clear to auscultation emi. ABSENT: rhonchi, wheezes Cardiovascular exam: PRESENT: RRR. ABSENT: gallop GI/Abdominal exam: PRESENT: soft. ABSENT: distended, tenderness Extremities exam: ABSENT: pedal edema Neurological exam: PRESENT: alert, awake Psychiatric exam: ABSENT: agitated Focused psych exam: ABSENT: restlessness Skin exam: PRESENT: dry, warm. ABSENT: cyanosis Results Laboratory Results: 04/21/17 04:44 04/21/17 04:44 04/21/17 04/21/17 04:44 04:44 WBC 6.8 RBC 3.62 L Hgb 10.8 L Hct 32.0 L MCV 89 MCH 30.0 MCHC 33.8 RDW 12.6 Plt Count 190 Seg Neutrophils % 57.4 Lymphocytes % 25.9 Monocytes % 13.3 H Eosinophils % 3.0 Basophils % 0.4 Absolute Neutrophils 3.9 Absolute Lymphocytes 1.8 Absolute Monocytes 0.9 Absolute Eosinophils 0.2 Absolute Basophils 0.0 Sodium 141.7 Potassium 4.2 Chloride 108 H Carbon Dioxide 26 Anion Gap 8 BUN 3 L Creatinine 0.61 Est GFR ( Amer) > 60 Est GFR (Non-Af Amer) > 60 Glucose 88 Calcium 8.3 L 04/18/17 17:20 Catheterized Urine Urine Culture - Final NO GROWTH 2 DAYS Impressions: Abdomen/Pelvis CT 04/19/17 00:00 IMPRESSION: NO SIGNIFICANT OR ACUTE FINDING IN THE ABDOMEN OR PELVIS ON CT SCAN WITH IV CONTRAST. No evidence of free air, as queried. Assessment & Plan - Diagnosis (1) Sepsis Qualifiers: Sepsis type: sepsis due to unspecified organism Qualified Code(s): A41.9 - Sepsis, unspecified organism Is this a current diagnosis for this admission?: Yes (2) Pyelonephritis Is this a current diagnosis for this admission?: Yes (3) Substance abuse Is this a current diagnosis for this admission?: Yes (4) Constipation Qualifiers: Constipation type: unspecified constipation type Qualified Code(s): K59.00 - Constipation, unspecified Is this a current diagnosis for this admission?: Yes (5) Urinary retention Is this a current diagnosis for this admission?: Yes (6) Anemia of chronic disease Is this a current diagnosis for this admission?: Yes (7) Bipolar depression Is this a current diagnosis for this admission?: Yes (8) Hx of traumatic brain injury Is this a current diagnosis for this admission?: Yes - Time Time Spent with patient: 25-34 minutes - Plan Summary Plan Summary: Discontinue Mccarty catheter. Begin physical therapy. MiraLAX for constipation. Discontinue intravenous Rocephin and she is to oral. Continue vancomycin and follow culture. Increase IV fluids.
[2017-04-21] MEDS: ENOXAPARIN SODIUM INJ 40 MG/0.4 ML DISP.SYRIN SUBCUT SCH (10:48)
[2017-04-21] MEDS: BENZTROPINE MESYLATE 1 MG TABLET PO SCH (10:48)
[2017-04-21] MEDS: LEVOFLOXACIN 750 MG TABLET PO SCH (10:48)
[2017-04-21] MEDS: NICOTINE 21 MG/24 HR PATCH.TD24 TD SCH (10:48)
[2017-04-21] MEDS: NORMAL SALINE 1000 ML 1,000 ML IV PRN (14:20)
[2017-04-21] MEDS: HALOPERIDOL 5 MG TABLET PO SCH (21:22)
[2017-04-22] MEDS: VANCOMYCIN HCL 750 MG in DEXTROSE 5%-WATER 250 ML IV SCH (06:31)
[2017-04-22] MEDS: VENLAFAXINE HCL 75 MG CAP.SR.24H PO SCH (07:19)
[2017-04-22] MEDS: ENOXAPARIN SODIUM INJ 40 MG/0.4 ML DISP.SYRIN SUBCUT SCH (09:18)
[2017-04-22] MEDS: NICOTINE 21 MG/24 HR PATCH.TD24 TD SCH (09:19)
[2017-04-22] MEDS: BENZTROPINE MESYLATE 1 MG TABLET PO SCH (09:19)
[2017-04-22] MEDS: LEVOFLOXACIN 750 MG TABLET PO SCH (09:19)
[2017-04-22 13:27] VITALS: BP 130/68
--- NOTE | 2017-04-22 14:04 | PDOC DISCHARGE SUMMARY ---
General - Admit/Disc Date/PCP Admission Date/Primary Care Provider: 04/18/17 17:14 Discharge Date: 04/22/17 - Discharge Diagnosis (1) Sepsis Is this a current diagnosis for this admission?: Yes (2) Pyelonephritis Is this a current diagnosis for this admission?: Yes (3) Substance abuse Is this a current diagnosis for this admission?: Yes (4) Constipation Is this a current diagnosis for this admission?: Yes (5) Urinary retention Is this a current diagnosis for this admission?: Yes (6) Anemia of chronic disease Is this a current diagnosis for this admission?: Yes (7) Bipolar depression Is this a current diagnosis for this admission?: Yes (8) Hx of traumatic brain injury Is this a current diagnosis for this admission?: Yes - Additional Information Resuscitation Status: Full Code Discharge Diet: Regular Discharge Activity: Activity As Tolerated, Balance Activity w/Rest Home Medications: Benztropine Mesylate 1 mg PO DAILY 04/18/17 Clonazepam [Klonopin] 0.5 mg PO TID PRN 04/18/17 Guanfacine HCl 2 mg PO QAM 04/18/17 Haloperidol [Haldol 5 mg Tablet] 5 mg PO QHS 04/18/17 Prazosin HCl 1 mg PO QHS 04/18/17 Venlafaxine HCl ER [Effexor Xr 75 mg Cap.sr] 75 mg PO QAM 04/18/17 Levofloxacin [Levaquin 750 mg Tablet] 750 mg PO DAILY #6 tablet 04/22/17 History of Present Illness Patient complains of: Syncopal episode History of Present Illness: ANGEL BROOKS is a 26 year old male with a past medical history of a TBI and subsequent bipolar depression who was recently discharged from [facility]. Patient was walking 2 miles to the cast and with his brother when he collapsed. Patient does suffer some from some short-term memory loss associated with his TBI. He did say to his brother that he was having some back pain and belly pain and yesterday complaining of being cold. The bulk of the history is obtained from his mother who was present at bedside. Patient was found by EMS to have fever of 104 and received a liter of cold saline from EMS. Patient here is found to have a lactic acidosis and probable sepsis referred to the hospitalist service. For details please refer to history and physical examination performed by the admitting physician. Hospital Course Hospital Course: The patient was admitted to telemetry. The patient was diagnosed with sepsis and acute pyelonephritis. The patient was given intravenous fluids and intravenous antibiotic. Cultures of the blood and urine were performed. Patient had an initial CT scan of the abdomen and pelvis showing questionable perforation. Surgery was consulted and a repeat CT of the abdomen and pelvis with IV contrast and oral contrast did not reveal any perforation findings. Likewise there was no reported clinical findings suspicious of perforation as well. The patient did well with IV hydration and IV antibiotics. Blood culture on one occasion grew gram-positive cocci where he was started on vancomycin. Eventually the blood culture was Staphylococcus epidermidis and only on one bottle likely a contamination. Vancomycin was discontinued. The patient urine culture was negative and the patient was shifted to oral antibiotics. Patient did well and improved and physicals therapy instituted. Course was complicated by urinary retention requiring Mccarty catheter insertion. Patient upon improvement Mccarty catheter was able to be discontinued successfully and the patient was voiding freely. The rest of the hospital stays essentially unremarkable. Electrolytes were monitored and were replaced. Patient continues to improve and eventually was discharged home with above instructions. Physical Exam Vital Signs: Temp Pulse Resp BP Pulse Ox 97.7 F 74 18 130/68 H 100 04/22/17 13:25 04/22/17 13:25 04/22/17 13:25 04/22/17 13:25 04/22/17 13:25 Intake & Output 04/21/17 04/22/17 04/23/17 06:59 06:59 06:59 Intake Total 5585 2328 1250 Output Total 5400 Balance 185 2328 1250 Weight 50.9 kg 49.9 kg General appearance: PRESENT: no acute distress, cooperative, thin Head exam: PRESENT: normocephalic Eye exam: PRESENT: EOMI, PERRLA Mouth exam: PRESENT: moist, neck supple Neck exam: ABSENT: JVD Respiratory exam: PRESENT: clear to auscultation mei. ABSENT: rhonchi, wheezes Cardiovascular exam: PRESENT: RRR. ABSENT: gallop GI/Abdominal exam: PRESENT: normal bowel sounds, soft. ABSENT: distended, tenderness Extremities exam: ABSENT: pedal edema Neurological exam: PRESENT: alert, awake Psychiatric exam: ABSENT: agitated Focused psych exam: ABSENT: restlessness Skin exam: PRESENT: dry, warm. ABSENT: cyanosis Results Laboratory Results: 04/21/17 04:44 04/21/17 04:44 Impressions: Abdomen/Pelvis CT 04/19/17 00:00 IMPRESSION: NO SIGNIFICANT OR ACUTE FINDING IN THE ABDOMEN OR PELVIS ON CT SCAN WITH IV CONTRAST. No evidence of free air, as queried. Qualifiers PATEINT BEING DISCHARGED WITH ANY OF THE FOLLOWING DIAGNOSIS?: No Plan Discharge Plan: Follow-up with primary care physician in 1 week Time Spent: Less than 30 Minutes
== END 2017-04-22 14:40 | disposition home or self-care (01) | DRG 872 ==
LOC: ER 15:48 → EH 17:14 → OBSVTOIN 17:14 → EH 17:33 → UNDOADMOB 17:33 → 4N 20:01
PROVIDERS: ADMIT Family Medicine; ATTEND Family Medicine
DX: A41.9 Sepsis, unspecified organism (principal); N10 Acute pyelonephritis; E87.2 Acidosis; R33.9 Retention of urine, unspecified; D63.8 Anemia in other chronic diseases classified elsewhere; K59.00 Constipation, unspecified; R10.33 Periumbilical pain; R00.0 Tachycardia, unspecified; F19.10 Other psychoactive substance abuse, uncomplicated; F17.210 Nicotine dependence, cigarettes, uncomplicated; T67.1XXA Heat syncope, initial encounter; F31.9 Bipolar disorder, unspecified; X58.XXXA Exposure to other specified factors, initial encounter; Y93.01 Activity, walking, marching and hiking; Y92.89 Other specified places as the place of occurrence of the external cause; Z87.820 Personal history of traumatic brain injury
CPT/HCPCS: 36415; 51701; 74176; 74177; 80048; 80053; 80076; 80202; 80307; 81001; 82150; 82550; 82803; 83605; 83690; 83735; 84100; 84443; 85025; 85610; 87040; 87077; 87086; 87186; 93005; 93010; 96365; 99291; J0696; J1650; J2543; J3370; J7030; J7060

== ENCOUNTER 2017-04-29 16:59 | Emergency (ER) | payer MEDICAID ==
[2017-04-29] MEDS ORDERED: NORMAL SALINE 1000 ML 1,000 ML IV PRN (17:00)
[2017-04-29] MEDS ORDERED: MAG HYDROX/AL HYDROX/SIMETH SUSP 30 ML UDCUP PO ONE (17:02)
--- NOTE | 2017-04-29 17:02 | ER Document Report ---
ED General - General Stated Complaint: FALL Time Seen by Provider: 04/29/17 17:00 Notes: 18-year-old male with a history of traumatic brain injury who was seen by me about a week and a half ago for skipping heatstroke and was eventually admitted for concern for sepsis. He is brought in today because he has been dizzy and not acting like his normal self today all in the setting of decreased oral intake. He has not fainted. For EMS he was hypotensive to the 70s, then the 90s, and when he laid down he bradycardia down to the 40s. He denies current dizziness but has had diarrhea twice yesterday. Normal bowel movement today without nausea vomiting. When asked if he ate today he said "I was not hungry for what my mama was cooking." TRAVEL OUTSIDE OF THE [place] IN LAST 30 DAYS: No - Related Data Allergies/Adverse Reactions: No Known Allergies Allergy (Verified 04/18/17 16:04) Past Medical History - Social History Smoking Status: Current Some Day Smoker Family History: CAD, Malignancy, Other - mental illness Renal/ Medical History: Denies: Hx Peritoneal Dialysis Past Surgical History: Reports: Other - MEDICAID NURSE shunt x2 - Immunizations Hx Diphtheria, Pertussis, Tetanus Vaccination: No Review of Systems - Review of Systems Notes: REVIEW OF SYSTEMS GEN: Denies fever, chills, weight loss ENT: Denies sore throat, nasal discharge, ear pain EYES: Denies blurry vision, eye pain, discharge CV: Denies chest pain, palpitations, edema RESP: Denies cough, shortness of breath, wheezing GI: Denies abdominal pain, nausea, vomiting, diarrhea MSK: Denies joint pain/swelling, edema, SKIN: Denies rash, skin lesions LYMPH: Denies swollen glands/lymph nodes NEURO: D dizziness postural PSYCH: Denies depression, suicidal or homicidal ideation PHYSICAL EXAMINATION General: No acute distress, well-nourished Head: Atraumatic, normocephalic ENT: Mouth normal, oropharynx dry, no exudates or tonsillar enlargement Eyes: Conjunctiva normal, pupils equal, lids normal Neck: No JVD, supple, no guarding CVS: Normal rate, regular rhythm, no murmurs Resp: No resp distress, equal and normal breath sounds bilaterally GI: Nondistended, soft, no tenderness to palpation, no rebound or guarding Ext: No deformities, no edema, normal range of motion in upper and lower ext Back: No CVA or midline TTP Skin: No rash, warm Lymphatic: No lymphadeopathy noted Neuro: Awake, alert. Face symmetric. GCS 15. Physical Exam - Vital signs Vitals: Resp BP Pulse Ox 16 89/61 L 100 04/29/17 17:02 04/29/17 17:02 04/29/17 17:02 Course - Re-evaluation Re-evalutation: 04/29/17 18:16 Patient presents with dehydration and dizziness and orthostatic type symptoms. Hypotensive on ED arrival and appears dry. Has resolving diarrhea. Doubt C. difficile. Will hydrate and get labs. On further history the parents state that the patient is not eating very much at home. On reevaluation at 6:15 PM his pressure is in the 90s and he feels better. His hemoglobin is actually slightly higher than it was before so I doubt bleed. He will receive 1 more liter of fluid. Given his appearance and response to treatment as well as his lack of significant laboratory abnormalities, he will be observed and can possibly be discharged. 04/29/17 19:25 7:20 PM. Systolic pressures in the high 90s now. Patient feels much better after fluids. His parents state that he is been falling but he says that whenever he stands he gets dizzy and feels like he is going to faint. I stood him up myself and walked him down the chiu and he had no signs or symptoms of orthostasis. I will finish this fluid bolus and he will be discharged home in stable condition. Given his lack of fever and symptoms are source I do not think he is septic. He has never been tachycardic. His EKG is normal. His labs do not show significant abnormalities. Stable for discharge. Insert my discharge I have discussed with the patient there likely diagnosis, aftercare plan, follow-up plans and my usual and customary return precautions. They verbalized understanding of this. - Vital Signs Vital signs: Temp Pulse Resp BP Pulse Ox 15 91/60 L 100 04/29/17 19:20 04/29/17 19:20 04/29/17 19:20 - Laboratory Result Diagrams: 04/29/17 17:00 04/29/17 17:00 Laboratory results interpreted by me: 04/29/17 17:00 RBC 3.80 L Hgb 11.4 L Hct 34.5 L - EKG Interpretation by Me EKG shows normal: Sinus rhythm Rate: Normal Rhythm: NSR - QT interval has decreased compared to the last EKG. Otherwise normal with no ischemic change. Discharge - Discharge Clinical Impression: Near syncope, Dehydration Condition: Good Disposition: HOME, SELF-CARE Instructions: Dehydration (OM) Additional Instructions: I think that this weakness and falling is due to dehydration from decreased oral intake. Please ensure that you eat plenty of food, 3 meals a day with snacks, and keep well hydrated so that your urine is clear and your urinating several times a day. Please follow-up with your primary care doctor in 2-3 days for a recheck. He is return to emergency department for any dizziness change in behavior or loss of coordination or fainting. Referrals: GEURRERO CAN MD [Primary Care Provider] - Follow up as needed
[2017-04-29 17:18] LABS: ABSOLUTE EOSINOPHILS # (AUTO) 0.1 10^3/uL (0.0-0.6); ABSOLUTE LYMPHOCYTES (AUTO) 1.7 10^3/uL (0.5-4.7); ABSOLUTE MONOCYTES (AUTO) 0.5 10^3/uL (0.1-1.4); ABSOLUTE NEUT (AUTO) 3.5 10^3/uL (1.7-8.2); BASOPHILS % (AUTO) 0.3 % (0-2); EOSINOPHILS % (AUTO) 2.3 % (0-6); HEMATOCRIT 34.5 % (37.9-51.0); HEMOGLOBIN 11.4 g/dL (13.5-17.0); HGB HCT DIFFERENCE -0.3; LYMPHOCYTES % (AUTO) 29.1 % (13-45); MEAN CORPUSCULAR HEMOGLOBIN 29.9 pg (27.0-33.4); MEAN CORPUSCULAR VOLUME 91 fl (80-97); RED CELL DISTRIBUTION WIDTH 12.7 % (11.5-14.0); SEGMENTED NEUTROPHILS % (AUTO) 59.3 % (42-78)
[2017-04-29 17:37] LABS: ANION GAP 6 (5-19); BLOOD UREA NITROGEN 9 mg/dL (7-20); CALCIUM 8.5 mg/dL (8.4-10.2); CARBON DIOXIDE 27 mmol/L (22-30); CHLORIDE 106 mmol/L (98-107); CREATININE RESULT 0.85 mg/dL (0.52-1.25); GLUCOSE 92 mg/dL (75-110); POTASSIUM 4.1 mmol/L (3.6-5.0); SODIUM 138.6 mmol/L (137-145)
[2017-04-30 02:41] VITALS: BP 110/74
--- NOTE | 2017-04-30 07:53 | EKG REPORT ---
SEVERITY:- NORMAL ECG - SINUS RHYTHM : Confirmed by: Shaun Alicia MD 30-Apr-2017 07:53:39
== END 2017-04-29 22:00 | disposition home or self-care (01) ==
LOC: ER 16:59
DX: R55 Syncope and collapse (principal); E86.0 Dehydration; I95.9 Hypotension, unspecified; R19.7 Diarrhea, unspecified; F17.200 Nicotine dependence, unspecified, uncomplicated; Z87.820 Personal history of traumatic brain injury; Z91.81 History of falling
CPT/HCPCS: 93005; 99284; 96360; 36415; 85025; 80048; 93010; J3490; J7030

== ENCOUNTER 2017-05-03 17:30 | Emergency (ER) | payer OTHER, MEDICAID ==
[2017-05-03 18:20] LABS: ABSOLUTE EOSINOPHILS # (AUTO) 0.1 10^3/uL (0.0-0.6); ABSOLUTE LYMPHOCYTES (AUTO) 1.5 10^3/uL (0.5-4.7); ABSOLUTE MONOCYTES (AUTO) 0.8 10^3/uL (0.1-1.4); ABSOLUTE NEUT (AUTO) 7.5 10^3/uL (1.7-8.2); BASOPHILS % (AUTO) 0.3 % (0-2); EOSINOPHILS % (AUTO) 0.8 % (0-6); HEMATOCRIT 34.9 % (37.9-51.0); HEMOGLOBIN 11.3 g/dL (13.5-17.0); MEAN CORPUSCULAR HEMOGLOBIN 29.6 pg (27.0-33.4); MEAN CORPUSCULAR HGB CONC 32.4 g/dL (32.0-36.0); MEAN CORPUSCULAR VOLUME 92 fl (80-97); MONOCYTES % (AUTO) 7.9 % (3-13); RED BLOOD COUNT 3.81 10^6/uL (4.35-5.55); RED CELL DISTRIBUTION WIDTH 13.1 % (11.5-14.0); WHITE BLOOD COUNT 9.8 10^3/uL (4.0-10.5)
[2017-05-03 18:42] LABS: ALANINE AMINOTRANSFERASE 20 U/L (21-72); ALBUMIN 3.9 g/dL (3.5-5.0); ALKALINE PHOSPHATASE 82 U/L (38-126); ANION GAP 11 (5-19); ASPARTATE AMINO TRANSFERASE 14 U/L (17-59); BILIRUBIN,DIRECT 0.2 mg/dL (0.0-0.4); BILIRUBIN,TOTAL 0.7 mg/dL (0.2-1.3); BLOOD UREA NITROGEN 6 mg/dL (7-20); CARBON DIOXIDE 25 mmol/L (22-30); CHLORIDE 104 mmol/L (98-107); CREATININE RESULT 0.93 mg/dL (0.52-1.25); GLUCOSE 104 mg/dL (75-110); POTASSIUM 3.3 mmol/L (3.6-5.0); SODIUM 139.9 mmol/L (137-145); TOTAL PROTEIN 6.5 g/dL (6.3-8.2)
[2017-05-03 18:52] LABS: ALCOHOL < 10 mg/dL (NONE DETECTED)
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
--- NOTE | 2017-05-03 19:47 | EKG REPORT ---
SEVERITY:- NORMAL ECG - SINUS RHYTHM : Confirmed by: Shaun Alicia MD 03-May-2017 19:46:55
[2017-05-03] MEDS ORDERED: NORMAL SALINE 1000 ML 1,000 ML IV ONE (22:20)
[2017-05-04 07:15] LABS: APPEARANCE,URINE CLEAR; BILIRUBIN,URINE NEGATIVE (NEGATIVE); GLUCOSE, URINE NEGATIVE (NEGATIVE); KETONES,URINE NEGATIVE (NEGATIVE); LEUKOCYTE ESTERASE,URINE NEGATIVE (NEGATIVE); NITRITE,URINE NEGATIVE (NEGATIVE); PROTEIN,URINE NEGATIVE (NEGATIVE); URINE SPECIFIC GRAVITY 1.003; UROBILINOGEN,URINE NEGATIVE mg/dL (<2.0)
[2017-05-04 07:54] LABS: URINE BARBITURATES SCREEN NEGATIVE; URINE METHADONE SCREEN NEGATIVE; URINE OPIATES LOW NEGATIVE; URINE PHENCYCLIDINE SCREEN NEGATIVE
[2017-05-04] MEDS ORDERED: POTASSIUM CHLORIDE 10 MEQ TABLET.SA PO ONE (11:22)
--- NOTE | 2017-05-04 11:32 | ER Document Report ---
Doctor's Note Notes: 05/04/17 11:31 Rounds: Chart reviewed and patient interviewed. Patient is calm and cooperative and answers questions appropriately. Does not seem to be aggressive at this time. Vital signs have shown a somewhat low blood pressure a couple of times, the most recent being 95/58. He is not in any way shocky. His H&H is normal on his lab work. Vital signs are otherwise normal. Potassium level is 3.3, but other labs are normal except for a positive marijuana drug screen. Patient appears to be medically stable for transfer or discharge. Zaira Greer MD
[2017-05-04] MEDS ORDERED: VENLAFAXINE HCL 37.5 MG CAP.SR.24H PO SCH (14:00)
[2017-05-04] MEDS ORDERED: VENLAFAXINE HCL 37.5 MG CAP.SR.24H PO ONE (15:30)
[2017-05-04] MEDS: OLANZAPINE 5 MG TABLET PO SCH (18:00)
[2017-05-04] MEDS: DIVALPROEX SODIUM 500 MG TAB.SR.24H PO SCH (18:01)
[2017-05-04] MEDS ORDERED: BENZTROPINE MESYLATE 1 MG TABLET PO SCH (22:00)
[2017-05-05] MEDS: OLANZAPINE 5 MG TABLET PO SCH (09:17)
[2017-05-05] MEDS: DIVALPROEX SODIUM 500 MG TAB.SR.24H PO SCH (09:17)
--- NOTE | 2017-05-05 09:45 | ER Document Report ---
Doctor's Note Notes: 05/05/17 09:45 I have evaluated this pt. this am and he has no c/o at this time. He feels all of his needs arer being met and his physical exam is normal. He is awaiting disposiiton per mental health.
[2017-05-05] MEDS ORDERED: VENLAFAXINE HCL 37.5 MG CAP.SR.24H PO SCH (10:00)
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
[2017-05-05 14:27] VITALS: BP 95/70
== END 2017-05-05 14:27 | disposition home or self-care (01) ==
LOC: ER 17:30
DX: F31.9 Bipolar disorder, unspecified (principal); R39.9 Unspecified symptoms and signs involving the genitourinary system; Z87.820 Personal history of traumatic brain injury
CPT/HCPCS: 93005; 99285; 96360; 36415; 80307 ×4; 85025; 80053; 81001; 93010; J3490 ×3; J7030

== ENCOUNTER 2017-05-05 17:31 | Emergency (ER) | payer OTHER, MEDICAID ==
[2017-05-05] MEDS ORDERED: NORMAL SALINE 1000 ML 1,000 ML IV ONE (18:09)
[2017-05-05 19:03] LABS: ABSOLUTE EOSINOPHILS # (AUTO) 0.1 10^3/uL (0.0-0.6); ABSOLUTE LYMPHOCYTES (AUTO) 1.5 10^3/uL (0.5-4.7); ABSOLUTE MONOCYTES (AUTO) 1.1 10^3/uL (0.1-1.4); ABSOLUTE NEUT (AUTO) 11.3 10^3/uL (1.7-8.2); BASOPHILS % (AUTO) 0.3 % (0-2); EOSINOPHILS % (AUTO) 0.5 % (0-6); HEMATOCRIT 36.8 % (37.9-51.0); HEMOGLOBIN 11.8 g/dL (13.5-17.0); HGB HCT DIFFERENCE -1.4; LYMPHOCYTES % (AUTO) 10.6 % (13-45); MEAN CORPUSCULAR HEMOGLOBIN 29.2 pg (27.0-33.4); MEAN CORPUSCULAR HGB CONC 32.1 g/dL (32.0-36.0); MEAN CORPUSCULAR VOLUME 91 fl (80-97); MONOCYTES % (AUTO) 7.8 % (3-13); RED BLOOD COUNT 4.04 10^6/uL (4.35-5.55); RED CELL DISTRIBUTION WIDTH 13.3 % (11.5-14.0); SEGMENTED NEUTROPHILS % (AUTO) 80.8 % (42-78)
[2017-05-05 19:25] LABS: ALANINE AMINOTRANSFERASE 21 U/L (21-72); ALBUMIN 3.5 g/dL (3.5-5.0); ALKALINE PHOSPHATASE 76 U/L (38-126); ANION GAP 9 (5-19); ASPARTATE AMINO TRANSFERASE 10 U/L (17-59); BILIRUBIN,DIRECT 0.3 mg/dL (0.0-0.4); BILIRUBIN,TOTAL 0.4 mg/dL (0.2-1.3); BLOOD UREA NITROGEN 10 mg/dL (7-20); CALCIUM 8.1 mg/dL (8.4-10.2); CARBON DIOXIDE 24 mmol/L (22-30); CHLORIDE 110 mmol/L (98-107); CREATINE KINASE 34 U/L (55-170); CREATININE RESULT 0.94 mg/dL (0.52-1.25); GLUCOSE 87 mg/dL (75-110); LIPASE 86.9 U/L (23-300); POTASSIUM 4.6 mmol/L (3.6-5.0); SODIUM 143.3 mmol/L (137-145); TOTAL PROTEIN 5.8 g/dL (6.3-8.2)
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
--- NOTE | 2017-05-06 09:41 | ER Document Report ---
Doctor's Note Notes: 05/06/17 09:40 I have evaluated this pt. this am and he has no c/o at this time. He feels all of his needs are being met and his physical exam is normal. He is awaiting disposition per mental health.
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
[2017-05-06 16:08] VITALS: BP 125/76
== END 2017-05-06 16:12 | disposition home or self-care (01) ==
LOC: ER 17:31
DX: F91.1 Conduct disorder, childhood-onset type (principal); R53.1 Weakness; F32.9 Major depressive disorder, single episode, unspecified; R00.2 Palpitations; F17.200 Nicotine dependence, unspecified, uncomplicated; Z87.820 Personal history of traumatic brain injury
CPT/HCPCS: 36415; 80053; 82550; 83605; 83690; 85025; 99284